=== PATIENT | male | born 1945 | race Caucasian/White ===

== ENCOUNTER 2016-11-14 05:45 | Day surgery (SDC) | payer MEDICARE ==
[~2016-11-14] VITALS: Ht 188 cm; Wt 97.8 kg
[~2016-11-14 05:45] MED LIST: AMLO10TA3 PO; ASCO100089 PO; ASPI325T32 PO; CARV12.52 PO; CLOP75TA3 PO; COLC0.6C3 PO; FURO-128 PO; GLIP5TAB21 PO; HYDR-3938 PO; INSU100I13 SUBQ; INSU200I SQ; LATA2.5D6 BOTH_EYES; LEVO137T2 PO; LEVO5DRO4 BOTH_EYES; LIP40 PO; LOSA100T29 PO; MULTIVITAMIN PO; NITR0.4T SL; PRE10 PO; ZYL100 PO
[2016-11-14] MEDS ORDERED: Propofol 10,000 mCg/mL 20 mL Inj ONE (05:46)
[2016-11-14] MEDS ORDERED: Lactated Ringer's 1,000 ML IV ONE (05:47)
[2016-11-14] MEDS ORDERED: Clindamycin Inj 600 MG in IV Premix 1 EACH IV ONE (06:00)
[2016-11-14 06:15] VITALS: BP 153/59; PULSE 55; RESP 16; O2SAT 93
[2016-11-14] MEDS ORDERED: Insulin LISPRO 300 Unit/3 mL Inj ONE (06:48)
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
[2016-11-14] MEDS ORDERED: Bupivacaine-MPF 0.5% W/EPI 30 mL Inj INFILTRATE ONE (07:50)
[2016-11-14] MEDS ORDERED: Lactated Ringer's 500 ML IV PRN (08:02)
[2016-11-14] MEDS ORDERED: Lactated Ringer's 1,000 ML IV SCH (08:02)
[2016-11-14] MEDS ORDERED: MetoCLOpramide 5 mg/mL 2 mL Inj IVPUSH PRN (08:05)
[2016-11-14] MEDS ORDERED: Ondansetron 2 mg/mL 2 mL Inj IVPUSH PRN (08:05)
[2016-11-14] MEDS ORDERED: Dexamethasone 4 mg/mL Inj IVPUSH PRN (08:05)
[2016-11-14] MEDS ORDERED: Phenylephrine 10,000 mCg/mL Inj IVPUSH PRN (08:05)
[2016-11-14] MEDS ORDERED: fentaNYL-PF 50 mCg/mL 2 mL Inj IVPUSH PRN (08:05)
[2016-11-14] MEDS ORDERED: HYDROmorphone 1 mg/mL Inj IVPUSH PRN (08:05)
[2016-11-14] MEDS ORDERED: EPHEDrine Sulfate 50 mg/mL Inj IVPUSH PRN (08:05)
[2016-11-14] MEDS ORDERED: HYDROcodone-APAP 5-325 mg Tablet PO PRN (08:30)
[2016-11-14 08:39] VITALS: BP 138/57; PULSE 52; RESP 18; O2SAT 95
--- NOTE | 2016-11-14 08:42 | PCM.PODPO ---
Podiatry Operative Report Date of Service: Nov 14, 2016 Date of Service Nov 14, 2016 Pre Operative Diagnosis Chronic ulceration left medial first metatarsal head extending to bone Chronic ulceration left plantar second metatarsal full-thickness to subcutaneous tissue Post Operative Diagnosis Same as preoperative diagnoses Procedure 1. Excision of ulceration 2 left foot with primary closure 2. Ostectomy left first metatarsal Surgeon Surgeon: Chau Garcia DPM Assistants: None Indication for Procedure Chronic ulceration with extension to the first metatarsal phalangeal joint of the left medial first metatarsal and chronic ulceration of the left plantar foot Findings Moderate amount of uric acid buildup within the first metatarsal phalangeal joint and overlying the medial eminence of the first metatarsal head. Severe osseous and articular degeneration of the first metatarsal phalangeal joints. No abscess formation or signs of infection noted Details of Procedure Patient was identified in the preoperative holding area. Operative record for diabetes allergies were identified and thoroughly discussed. The patient was transported into the operating room and placed on the operating room table in the normal supine position. The patient was then prepped and draped in the normal aseptic technique. The preoperative block consisting of 10 mL half percent Marcaine plain was given locally around the left first metatarsal phalangeal joint and left plantar second metatarsal ulceration. Attention was first paid to the left plantar foot. The full thickness ulceration with extension to fatty tissue was noted measuring 0.5 cm x 0.3 cm x 0.2 cm in depth. The wound bed was 80% fibrotic 20% red granulation tissue. An elliptical incision was made approximately 2 cm in length and 0.6 cm in width at its center excising the plantar ulceration. The ulceration was excised full- thickness to subcutaneous tissue. A fibrous plug was noted directly plantar to the second metatarsal head and was debrided with a rongeur. Direct palpation was performed and the local accessory bone was not palpated directly under the ulceration so no attempt was made to excise this accessory nodule. This wound was copiously flushed with large amounts of normal saline. Subcutaneous closure was performed with number 3. 0 Vicryl and skin closure was performed utilizing number 3. 0 Prolene. Minimal tension was noted on the skin incision. Attention was then paid to the medial aspect of the left first metatarsal head. Inspection of the ulceration revealed a small full-thickness ulceration with extension to the metatarsal phalangeal joint and to the first metatarsal head. This wound measured 0.4 cm x 0.3 cm x 0.4 cm in depth. An elliptical incision approximately 2 cm in length and 0.5 cm in width at its center was made encompassing the medial first metatarsal head ulceration. The central portion of the ellipse was excised through subcutaneous tissue. Once the ellipse and encompassing the ulcerative tissue had been excised the neurovascular structures of the medial foot were identified and retracted plantarly a Metzenbaum scissor was utilized to perform subcutaneous 1 and #into expose the first metatarsal head medially. Inspection of the first metatarsal head and the first metatarsophalangeal joint revealed a moderate amount of uric acid deposits and severe degeneration of the articular surface. A sagittal saw was then utilized to remove approximately a 2 mm portion of the medial eminence and a rongeur was used to remove any further bony prominence from the dorsal medial and plantar medial aspect of the first metatarsal medial eminence. This wound was then closely flushed with large amount of normal saline. Subcutaneous closure was performed utilizing number 3. 0 Vicryl and skin closure was performed utilizing number 3. 0 Prolene with minimal tension on the skin incision. An additional 10 mL of half percent Marcaine with epinephrine was injected intraoperatively. This wound was then dressed with Adaptic sterile Betadine soaked 4 x 4 gauze Kerlix and an Manuel bandage. The patient was awoken from anesthesia and transported to the operating room. No complications occurred during this procedure. Grafts, Implants: None Complications There were no periprocedural complications identified. Condition Stable Anesthetic Administered: MAC Catheters: None Output, Estimated Blood Loss: 10 Blood Admin during surgery: No Surgical Cast or Splint: None Surgical Specimen Removed: No Specimen sent to Pathology: No Post Operative Plan Elevate left foot Partial weight-bearing to left heel with limited activity Keep dressing clean dry and intact Discharged to home when stable Contact office with any questions or concerns regarding care Chau Garcia DPM Nov 14, 2016 08:42
[2016-11-14 09:05] VITALS: BP 162/65; PULSE 57; RESP 20; O2SAT 93
--- NOTE | 2016-11-14 09:13 | PCM.ANEP1 ---
Post Anesthesia Phase 1 PACU Phase 1 Assessment Date of Service: Nov 14, 2016 Vital Signs Vital Signs Date Time Temp Pulse Resp B/P Pulse Ox O2 Delivery O2 Flow Rate FiO2 11/14/16 09:05 57 20 162/65 93 Room Air 11/14/16 08:39 36.4 52 18 138/57 95 Room Air 11/14/16 06:29 CPAP/BIPAP 11/14/16 06:15 36.4 55 16 153/59 93 Room Air Anesthetic Administered: MAC Level of Alertness: Awake, talking Pain: No Nausea or Vomiting: No Oxygen Delivery: Room Air Lungs: Normal Air Movement Cristofer Teixeira MD Nov 14, 2016 09:13
--- NOTE | 2016-11-14 09:13 | PCM.ANEP2 ---
Post Anesthesia Evaluation ASA/CMS Post Anesthesia VS in Patient's Normal Range?: Yes Resp Stable; Airway Patent?: Yes CV Function & Hydration Stable: Yes Mental Status Recovered?: Yes Pain control Satisfactory?: Yes N/V Control Satisfactory?: Yes Cristofer Teixeira MD Nov 14, 2016 09:13
[2017-01-08] MEDS ORDERED: HYDR-4003 PO (12:58)
[2017-01-08] MEDS ORDERED: GLUC1VIA IJ (12:58)
[2017-01-08] MEDS ORDERED: CLIN-78 PO (12:58)
== END 2016-11-14 23:59 | disposition home or self-care (01) ==
LOC: SAS 05:45
PROVIDERS: ATTEND Podiatrist Foot & Ankle Surgery
DX: L97.524 Non-pressure chronic ulcer of other part of left foot with necrosis of bone (principal); M20.12 Hallux valgus (acquired), left foot; E11.9 Type 2 diabetes mellitus without complications; I10 Essential (primary) hypertension; Z79.4 Long term (current) use of insulin; Z79.899 Other long term (current) drug therapy; Z79.82 Long term (current) use of aspirin; Z87.891 Personal history of nicotine dependence
CPT/HCPCS: 13160; 28288; J1815; J7120

== ENCOUNTER 2017-01-09 11:52 | Day surgery (SDC) | payer MEDICARE ==
[~2017-01-09] VITALS: Ht 186.7 cm; Wt 95.7 kg
[2017-01-09] MEDS: Lactated Ringer's 1,000 ML IV SCH ×2 (06:04→12:18)
[~2017-01-09 11:52] MED LIST changes: +CLIN-78 PO; +Clindamycin Inj 600 MG in IV Premix 1 EACH IV ONE; +Dexamethasone 4 mg/mL Inj IVPUSH PRN; +EPHEDrine Sulfate 50 mg/mL Inj IVPUSH PRN; +GLUC1VIA IJ; +HYDR-4003 PO; +HYDROmorphone 1 mg/mL Inj IVPUSH PRN; +Labetalol 5 mg/mL 4 mL Inj IV PRN; +Lactated Ringer's 1,000 ML IV SCH; +Lactated Ringer's 500 ML IV PRN; +MetoCLOpramide 5 mg/mL 2 mL Inj IVPUSH PRN; +Ondansetron 2 mg/mL 2 mL Inj IVPUSH PRN; +Phenylephrine 10,000 mCg/mL Inj IVPUSH PRN; +fentaNYL-PF 50 mCg/mL 2 mL Inj IVPUSH PRN; +hydrALAZINE 20 mg/mL Inj IVPUSH PRN
[2017-01-09] MEDS ORDERED: MULT-1018 PO (12:48)
[2017-01-09] MEDS ORDERED: Clindamycin 600 mg/50 mL D5W Premix IV ONE (12:52)
[2017-01-09 13:01] VITALS: BP 158/67; PULSE 61; RESP 16; O2SAT 84
[2017-01-09 13:03] VITALS: O2SAT 98
[2017-01-09] MEDS ORDERED: LEVO150T5 PO (15:55)
[2017-01-09] MEDS ORDERED: ASPI-973 PO (15:58)
[2017-01-09] MEDS ORDERED: CLIN-77 PO (15:58)
[2017-01-09] MEDS ORDERED: CYCL10TA9 PO (15:59)
== END 2017-01-09 23:59 | disposition home or self-care (01) ==
LOC: SAS 11:52
PROVIDERS: ATTEND Podiatrist Foot & Ankle Surgery
DX: M86.9 Osteomyelitis, unspecified (principal); Z53.9 Procedure and treatment not carried out, unspecified reason

== ENCOUNTER 2017-01-09 13:18 | Inpatient (IN) | payer MEDICARE ==
[2017-01-09] VITALS (8 sets, daily range): BP systolic 166–191; BP diastolic 66–83; PULSE 64–78; RESP 16–32; O2SAT 84–98
[~2017-01-09] VITALS: Ht 185.4 cm; Wt 92.3 kg
[~2017-01-09 13:18] MED LIST changes: -Clindamycin Inj 600 MG in IV Premix 1 EACH IV ONE; -Dexamethasone 4 mg/mL Inj IVPUSH PRN; -EPHEDrine Sulfate 50 mg/mL Inj IVPUSH PRN; -HYDROmorphone 1 mg/mL Inj IVPUSH PRN; -Labetalol 5 mg/mL 4 mL Inj IV PRN; -Lactated Ringer's 1,000 ML IV SCH; -Lactated Ringer's 500 ML IV PRN; +MULT-1018 PO; -MetoCLOpramide 5 mg/mL 2 mL Inj IVPUSH PRN; -Ondansetron 2 mg/mL 2 mL Inj IVPUSH PRN; -Phenylephrine 10,000 mCg/mL Inj IVPUSH PRN; -fentaNYL-PF 50 mCg/mL 2 mL Inj IVPUSH PRN; -hydrALAZINE 20 mg/mL Inj IVPUSH PRN
--- NOTE | 2017-01-09 13:51 | DRSVH ---
PROCEDURE: X-RAY CHEST ONE VIEW, PORTABLE ([id number]) INDICATIONS: 71 year-old male with shortness of breath since last night. TECHNIQUE: One view of the chest was acquired. COMPARISON: [facility], CR, XR CHEST 2VW, 09/16/2016, 11:28. FINDINGS: Surgical changes and devices: Patient is status post coronary artery bypass grafting. Lungs and pleura: There is new small right subpulmonic pleural effusion. No pneumothorax. Bilateral i nterstitial pulmonary opacities are now present. Mediastinum: Mediastinal contours appear normal. Heart size is normal given AP technique. There is aortic atherosclerosis. Bones and chest wall: No suspicious bony lesions. Overlying soft tissues appear unremarkable. IMPRESSION: Moderate interstitial pulmonary edema, along with small right subpulmonic pleural effusion, suspiciou s for congestive heart failure. Dictated by: Christophe Dailey M.D. on 01/09/2017 at 13:48 Approved by: Christophe Dailey M.D. on 01/09/2017 at 13:50
--- NOTE | 2017-01-09 13:55 | ED.REPORT ---
HPI-Dyspnea / Wheezing Date of Service Jan 09, 2017 ED Provider: Yemi Cazares DO Patient is a 71 year old male with a history of osteomyelitis, triple bypass, peripheral vascular disease, chronic back pain, chronic renal insufficiency and diabetes who presents to the ED due to hypoxia. Associated symptoms include wheezing, shortness of breath since yesterday, dyspnea with exertion, left leg edema, chronic back pain flare up and feeling bloated. Patient states that he feels like his diaphragm is "not functioning right" and he hasn't been able to "catch his breath". He was scheduled for surgery today, where it was found that he was severely hypoxic and advised to go to the ED. Upon arrival to the ED the patient Sats were 84% on room air. Patient is currently on Plavix and diuretics. He reports that he hasn't felt an increased urgency even after taking the diuretics lately. Nursing Notes Stated Complaint: SOB Chief Complaint: Respiratory Distress Nursing Notes Reviewed: Yes Allergies: Coded Allergies: Penicillins (Verified Allergy, Severe, rash, 01/09/17) sulfamethoxazole (Verified Allergy, Unknown, 01/09/17) trimethoprim (Verified Allergy, Unknown, 01/09/17) lisinopril (Verified Adverse Reaction, Severe, COUGH, 01/09/17) Scheduled Allopurinol (Allopurinol) 100 Mg Tablet 300 MG PO QAM Amlodipine (Amlodipine) 10 Mg Tablet 10 MG PO QPM Ascorbic Acid (Vitamin C) 1,000 Mg Tab.chew 1,000 MG PO QAM Aspirin (Aspirin) 81 Mg Tablet 81 MG PO QAM Atorvastatin (Lipitor) 40 Mg Tablet 40 MG PO QPM Carvedilol (Carvedilol) 12.5 Mg Tablet 12.5 MG PO BID Clindamycin (Clindamycin) 150 Mg Capsule 300 MG PO QID Clopidogrel Bisulfate (Plavix) 75 Mg Tablet 75 MG PO QAM Furosemide (Lasix) 40 Mg Tablet 60 MG PO QAM Glipizide ER (Glipizide ER) 10 Mg Tab.er.24 10 MG PO BID Glucagon,Human Recombinant (Glucagen) 1 Mg/1 Ml Vial 1 MG IJ PRN Hydralazine (Hydralazine) 10 Mg Tablet 10 MG PO TID Insulin Glargine (Lantus U100 Solostar Insulin Pen) 100 Unit/1 Ml Insuln.pen 25 UNIT SUBQ QPM Insulin Lispro (Humalog Kwikpen) 200 Unit/Ml (3 Ml) Insuln.pen 10 UNIT SQ TIDAC 10U PLUS SLIDING SCALE DETERMINATION TIDAC Latanoprost (Latanoprost) 2.5 Ml Drops 1 GTT BOTH_EYES HS Levobunolol Ophth Soln (Levobunolol Ophth Soln) 5 Ml Drops 1 DROP BOTH_EYES QAM Levothyroxine (Levothyroxine) 150 Mcg Tablet 150 MCG PO QAM Losartan Potassium (Losartan Potassium) 100 Mg Tablet 50 MG PO QAM Multivitamin (Multi Vitamin Daily) 1 Each Tablet 1 EACH PO QAM Scheduled PRN Colchicine (Colchicine) 0.6 Mg Capsule 0.6 MG PO BID PRN PRN PRN Cyclobenzaprine (Cyclobenzaprine) 10 Mg Tablet 10 MG PO TID PRN PRN For Spasm Hydrocodone-Acetaminophen 5-325 mg (Hydrocodone-Acetaminophen 5-325 mg) 1 Each Tablet 1 TABLET PO Q6H PRN PRN For Pain Nitroglycerin SL (Nitrostat) 0.4 Mg Tab.subl 0.4 MG SL Q5MIN PRN PRN CHEST PAIN Prednisone (PredniSONE) 10 Mg Tablet 10 MG PO DAILY PRN PRN PRN General Time Seen by MD: 13:37 Chief Complaint Shortness of breath Hx Obtained From: Patient Arrived By: Walk-in Sudden in Onset?: Yes Onset Occurred: Yesterday Severity: Current: No pain currently Associated with: Reports: Leg swelling, Denies: Chest pain Recent Healthcare: No recent hospitalization, Recent doctor visit Past Medical History Past Medical History osteomyelitis peripheral vascular disease GOUT chronic back pain Reports: Diabetes mellitus, Hyperlipidemia, Hypertension Reports: Renal insufficiency Past Surgical History triple bypass stent placement Smoking History Former Smoker Social History Other Social History: Good social support, Ambulatory Status Independent Review of Systems Constitutional: Denies: Chills, Fever Respiratory: Reports: Shortness of breath, Denies: Non-productive cough Cardiovascular: Reports: Dyspnea on exertion, Parox nocturnal dyspnea, Denies: Chest pain Musculoskeletal: Reports: Extremity swelling Skin: Denies Diaphoresis Complete sys rev & neg: except as marked. GI: Denies: Abdominal pain Male: Denies Urinary frequency, Denies Urinary urgency Neurologic: Denies: Bladder dysfunction Physical Exam Initial Vital Signs Vital Signs (First) Date Time Temp Pulse Resp B/P Pulse Ox O2 Delivery O2 Flow Rate FiO2 01/09/17 13:30 36.7 66 32 191/73 84 Simple Mask 9 Initial VS: Reviewed General/Constitutional: Awake, Alert Neck: Atraumatic, Supple positive JVD hepatojugular relex Respiratory / Chest: Atraumatic Wheezing / Retractions: Positive: Wheezing expiratory (scattered in all agee , more pronounced at bases) scattered inspiratory rales in all agee, more pronounced at the bases tachypneic but no increased work of breathing CARDIO: systolic 3/6 murmur at the right upper sternal border Abdomen: Atraumatic, Soft, Non-tender Lower Extremity / Pelvis / MS: Atraumatic, Full range of motion 1+ pitting edema bilaterally, worse on the left bandage around the left leg Skin: Atraumatic, Color NL, No rash, Warm, Dry Neurologic: Oriented X3, Speech NL, No motor deficits, No sensory deficits Head / Eyes: Atraumatic, Normocephalic, PERRL, EOMI Psychiatric: Affect NL, Mood NL Interpretation & Diagnostics Lab Results Interpretation Result Diagram: 01/09/17 1345 01/09/17 1345 Test 01/09/17 13:45 White Blood Count 11.3th/mm3 (3.8-10.1) Red Blood Count 3.56mil/mm3 (4.40-5.80) Hemoglobin 10.0g/dL (13.8-17.2) Hematocrit 31.3% (41.0-50.0) Mean Corpuscular Volume 87.9fL (81-100) Mean Corpuscular Hemoglobin 28.1pg (27.0-35.0) Mean Corpuscular Hemoglobin Concent 31.9% (32.0-37.0) Red Cell Distribution Width 16.5% (12.3-15.4) Platelet Count 265bil/L (150-400) Neutrophils (%) (Auto) 78.3% (40-74) Lymphocytes (%) (Auto) 11.4% (14-46) Monocytes (%) (Auto) 7.6% (4-12) Eosinophils (%) (Auto) 2.1% (0-5) Basophils (%) (Auto) 0.4% (0-3) Prothrombin Time 11.6sec (8.1-12.5) Prothromb Time International Ratio 1.08ratio Sodium Level 131mEq/L (134-144) Potassium Level 5.1mEq/L (3.5-5.2) Chloride Level 95mEq/L (97-108) Carbon Dioxide Level 21mmol/L (18-29) Blood Urea Nitrogen 28mg/dL (8-27) Creatinine 1.61mg/dL (0.76-1.27) Estimat Glomerular Filtration Rate 45mL/min (>59) Glucose Level 184mg/dL (60-99) Calcium Level 9.8mg/dL (8.5-10.1) Magnesium Level 2.2mg/dL (1.6-2.6) Total Bilirubin 0.6mg/dL (0.0-1.2) Aspartate Amino Transf (AST/SGOT) 17U/L (0-50) Alanine Aminotransferase (ALT/SGPT) 12U/L (0-44) Alkaline Phosphatase 73U/L (25-160) Troponin T 0.039ug/L (0.0-0.011) Pro-B-Type Natriuretic Peptide 31113nw/mL (0-376) Total Protein 8.8g/dL (6.4-8.4) Albumin 3.4g/dL (3.4-5.0) ECG Interpretation ECG Interpretation: prolonged NC interval left atrial enlargement T wave inversion from V3 to V6, which is new from previous EKG on 06/12/15 Time: 14:08 Interpreted by: ED physician Normal ECG Interpretation: Normal rate (67), Normal sinus rhythm X-Ray Chest Interpretation Chest Xray Interpretation: IMPRESSION: Moderate interstitial pulmonary edema, along with small right subpulmonic pleural effusion, suspicious for congestive heart failure. Dictated by: Christophe Dailey M.D. on 01/09/2017 at 13:48 Approved by: Christophe Dailey M.D. on 01/09/2017 at 13:50 View: Portable, 1 view Interpretation / Wet Read by: Interpret - Radiologist Re-Eval/Medical Decision Med Decision/Clinical Course 71-year-old male with a history of insulin-dependent type II diabetes with a recent A1c of 7.9, coronary artery disease status post CABG, peripheral arterial disease on Plavix, and chronic osteomyelitis presents with increasing shortness of breath for the past month. He was actually scheduled for outpatient surgery with Dr. Garcia today for metatarsal removal due to his chronic osteomyelitis but surgery was canceled as he was hypoxic at 84 on room air. He was also to But had no increased work of breathing. Patient admits that he held his Lasix last night because he was instructed prior to his surgery. He takes 60 mg daily but does not have significant urination after taking this medication. He admits to orthopnea and paroxysmal nocturnal dyspnea. He has noticed a small amount of increased swelling in his legs. X- ray shows increased pulmonary vascular congestion and clinically the patient appears fluid overloaded with JVD, lower extremity edema and wet sounding lungs. He was treated with IV Lasix 40 mg 1 here. His EKG returned showing T- wave inversions in V3 through V6 which is new when compared from previous EKG from 2014. Patient does not have chest pain. I ordered an echocardiogram today to reevaluate his mitral regurgitation and cardiac ejection fraction. Recent cardiac stress test done 11/05/16 shows abnormal myocardial perfusion images. There is a moderate sized, moderately severe, fixed defect in the lateral wall, consistent with myocardial infarct. There is mild. Infarct ischemia in the anterior lateral wall. Mild left ventricular enlargement and slight decreased left ventricular systolic function. The patient explains chest pain during Lexiscan infusion. There is [address] depression in V6. He also had an echocardiogram done March 2016 that showed an ejection fraction of 60% with moderate mitral valve regurgitation. Troponin returned elevated at 0.039 and I spoke with Dr. Scruggs regarding this patient with concerns for NSTEMI versus CHF exacerbation in the setting of renal insufficiency. She recommended treating patient with heparin until more is known and the echocardiogram results return. I considered d-dimer but patient was not tachycardic and given that he already has renal insufficiency and is in need of significant diuresis, has the potential to need a cardiac cath in the next several days, he is on heparin already and that an alternative diagnosis is more plausible I elected to not perform a CT PE. D-dimer would certainly be positive with his chronic osteomyelitis. The current diagnosis and plan was discussed with the patient and his family and all questions answered He will be admitted for diuresis and further heart evaluation Source of Hx: Old records Re-Evaluation/Progress : Time of Eval: 15:16 Re-Evaluation/Progress Note: Discussed results and plan for admit. The patient understands and agrees to the plan for admit. All questions were addressed. Consultation #1: Referral / Consult Name: Odette Nazario MD Consulted With: Cardiology Call Returned at: 15:03 Marine Diesel Technician: Will see patient, Agrees with eval, Agrees with plan Note: Consult with Dr. Nazario, who recommends the patient be admitted and she will see them tomorrow. Consultation #2: Referral / Consult Name: James Hardy MD Call Returned at: 15:53 Marine Diesel Technician: Will see patient, Agrees with plan, Accepts admit Counseled Regarding: Diagnosis, Lab results, Need for admission Discharge & Departure Impression: Primary Impression: Acute CHF Congestive heart failure type: unspecified congestive heart failure type Qualified Code: I50.9 - Heart failure, unspecified Additional Impressions: Non-STEMI (non-ST elevated myocardial infarction) Elevated troponin Renal insufficiency Anemia Anemia type: unspecified type Qualified Code: D64.9 - Anemia, unspecified Hyperglycemia Hyponatremia Leukocytosis Leukocytosis type: unspecified Qualified Code: D72.829 - Elevated white blood cell count, unspecified Disposition: ADMITTED TO HOSPITAL Discharge Condition All VS Reviewed: Yes Condition: Stable Referrals: Mychal Forrest MD (PCP) Scribe Attestation Portions of this note were transcribed by Shirley Hill. I, Dr. Cazares personally performed the history, physical exam and medical decision-making; I reviewed and confirmed the accuracy of the information in the transcribed note. Signed by: Shirley Vogt, 01/09/17 and [id number] copies to: Mychal Forrest MD, Gary R DO Jan 09, 2017 13:55 Lona Hill Jan 09, 2017 14:07
[2017-01-09] MEDS ORDERED: Furosemide 10 mg/mL 4 mL Inj ONE (14:00)
[2017-01-09 14:07] LABS: BASOPHILS % (AUTO) 0.4 % (0-3); EOSINOPHILS % (AUTO) 2.1 % (0-5); MONOCYTES % (AUTO) 7.6 % (4-12); Mean Corpuscular Hemoglobin 28.1 pg (27.0-35.0); Mean Corpuscular Volume 87.9 fL (81-100); NEUTROPHILS % (AUTO) 78.3 % (40-74); Platelet Count 265 bil/L (150-400)
[2017-01-09] MEDS: Furosemide 10 mg/mL 4 mL Inj IVPUSH SCH (14:08)
[2017-01-09 14:19] LABS: INR 1.08 ratio
[2017-01-09 14:38] LABS: Magnesium 2.2 mg/dL (1.6-2.6)
[2017-01-09 14:41] LABS: TROPONIN T 0.039 ug/L (0.0-0.011)
[2017-01-09] MEDS ORDERED: Heparin 25K Unit/500mL 0.45 NS 25,000 UNIT in IV Premix 1 EACH IV SCH (15:20)
[2017-01-09] MEDS ORDERED: Ondansetron 2 mg/mL 2 mL Inj IVPUSH PRN ×2 (15:55→17:10)
[2017-01-09] MEDS ORDERED: LEVO150T5 PO (15:55)
[2017-01-09] MEDS ORDERED: Alum-Mag Hydrox-Simeth 30 mL Suspension PO PRN ×2 (15:55→17:10)
[2017-01-09] MEDS ORDERED: CLIN-77 PO (15:58)
[2017-01-09] MEDS ORDERED: ASPI-973 PO (15:58)
[2017-01-09] MEDS ORDERED: CYCL10TA9 PO (15:59)
--- NOTE | 2017-01-09 16:39 | DRSVH ---
[facility] [address] [place] [address] Echocardiogram Report Name: ELISHA MACK JStudy Date: 01/09/2017 Height: 73 in Hospital Exam Location: [facility] Weight: 211 lb Gender: Male BSA: 2.2 m2 : 1945 Age: 71 yrs BP: 187/77 mmHg Reason For Study: Fluid overload, SOB History: CABG Ordering Physician: Performed By: Maia Looney Interpretation Summary 1. Normal left ventricular size with mildly increased wall thickness and reduced systolic function with an estimated EF of 35 to 40% 2. Normal right ventricular size and systolic function. 3. Findings most consistent with moderate aortic stenosis. Compared to the previous echo study, the estimated EF has decreased. The wall motion abnormalities may be new Procedure: A two-dimensional transthoracic echocardiogram with color flow and Doppler was performed. The study quality was technically adequate. Comparison is made with the echocardiogram of 03/26/2016. The patient was in normal sinus rhythm during the exam. Left Ventricle: The left ventricle is normal in size. Left ventricular wall thickness is mildly increased. The LVOT diameter is 2.3 cm. The LVOT velocity is 0.95 m/s. The ejection fraction is estimated to be 35-40%. Septal motion is consistent with post-operative state. Hypokinesis of the basal inferior/inferolateral wall and possible hypokinesis of the distal anterolateral segment. Assessment of diastolic parameters suggests a pseudonormalization pattern, consistent with elevated filling pressures. Right Ventricle: The right ventricle is normal in size and function. Atria: The left atrium is severely dilated. Right atrial size is normal. There is no Doppler evidence for an interatrial shunt. Mitral Valve: The mitral valve leaflets appear mildly thickened, but open well. The mitral valve leaflets are mildly calcified. There is mild mitral regurgitation. Aortic Valve: The right and left coronary cusps are mildly calcified with limited excursion. The noncoronary cusp appears normal. The calculated aortic valve area is 1.3 cm2. The peak aortic velocity is 2.8 m/sec. The aortic valve mean gradient is 17 mmHg. The peak aortic velocity on the previous exam was 3.2 m/sec. No aortic regurgitation is present. Tricuspid Valve: The tricuspid valve leaflets are thin and pliable. There is a trace or physiologic amount of tricuspid regurgitation. The right ventricular systolic pressure is estimated at 42 mmHg assuming a right atrial pressure of 3 mm Hg. Pulmonic Valve: The pulmonic valve is not well seen, but is grossly normal. There is a trace or physiologic amount of pulmonic regurgitation. Great Vessels: The aortic root is normal size. The ascending aorta could not be visualized. The aortic arch could not be visualized. The pulmonary artery is normal size. The IVC is of normal diameter and collapses greater than 50% with a sniff. This suggests a low right atrial pressure of 3 mm Hg. Pericardium/ Pleura There is no pericardial effusion. MMode/2D Measurements & Calculations LVIDd: 5.5 cm RA long axis: 5.8 cm LVOT diam LVIDs: 4.5 cm LA A2 area: 31.2 cm FS: 16.9 % LA A4 area: 26.1 cm RA area: 19.0 cm AoV Opening EPSS: 1.1 cm LA length (vol): 6.1 cm RA vol: 52.9 ml IVSd: 1.2 cm LA vol: 113.1 ml RA : 24.0 ml/m2 Ao root diam LVPWd: 1.1 cm LA vol index: 51.4 ml/m Aortic Jxn IVC diam: 2.1 cm : 2.8 cm EDV(MOD-sp2) LV mott. diameter/BSA LV sys. diameter/BSA RVD1 (basal) (cm/m^2): 2.5 (cm/m^2): 2.1 : 4.2 cm ESV(MOD-sp2) EF(MOD-sp2) RVD2 (mid) TAPSE: 2.1 cm : 2.8 cm Doppler Measurements & Calculations Ao V2 max MV E max christopher MV E/A: 1.1 TR max christopher : 282.2 cm/sec : 113.7 cm/sec Med Peak E' Christopher : 313.6 cm/sec Ao max PG MV A max christopher TR max PG : 31.9 mmHg : 102.6 cm/sec E/E' med: 22.3 : 39.3 mmHg Ao mean PG MV P1/2t: 52.7 msec Lat Peak E' Christopher PA V2 max : 17.0 mmHg : 109.4 cm/sec LVOT Max Christopher E/E' lat: 23.8 PA mean PG : 94.7 cm/sec E/e' average PA Accel Time JESUSITA(I,D): 1.3 cm : 0.15 sec sev ratio MV dec time MV P1/2t max christopher Ao V2 mean LV V1 max PG : 0.18 sec : 193.3 cm/sec MVA(P1/2t): 4.2 cm2 Ao V2 VTI: 69.9 cmLV V1 VTI JESUSITA(V,D): 1.4 cm2 : 22.9 cm PA V2 mean JESUSITA indexed to BSA : 73.3 cm/sec (cm^2/m^2): 0.60 Reading Physician:04:38 PM
[2017-01-09] MEDS ORDERED: Polyethylene Glycol (PEG) 17 Gm Powder PO PRN (17:10)
--- NOTE | 2017-01-09 17:19 | PCM.HPMED ---
Subjective Date of Service Jan 09, 2017 Primary Provider: Admitting Physician: James Hardy MD Primary Care Physician: Mychal Forrest MD Attending Physician: James Hardy MD Chief Complaint: Shortness of breath , hypoxia History of Present Illness: This is a 71 year old male with a nextensive histopry od coronary artery disease s/p CABG and stenting , history of osteomyelitis due to diabetic foot ulcers, peripheral vascular disease, chronic back pain, CKD stage IIIB with a baseline creatinine of 1.7-2.0 , Hypertension, hypercholesterolemia and IDDM type who presents to the ED due to shortness of breath and was found to have hypoxia. His symptoms include wheezing, shortness of breath since yesterday, dyspnea with exertion, left leg edema, chronic back pain flare up and feeling bloated. Patient states that he feels like his diaphragm is "not functioning right" and he hasn't been able to "catch up his breath". He was scheduled for surgery today for foot osteomyelitis , where it was found that he was severely hypoxic and advised to go to the ED for evaluation . Here in the ER oxygen saturation was 84% on room air and chest X-ray shows edema. His o2sat improved with oxygen and Lasix and EKG shows ST depression in lateral leads . Initial troponin is borderline positive . house calls nurse art librarian was consulted , who recommended heparinization and admission His home medication include : BB, Statin Plavix, Aspirin adn ARB . He also take 40 mg of furosemide daily . He reports urinating quite less lately despite taking his diuretic he said . He denies fever, chills, abdominal pain, nausea, vomiting . Review of Systems: Pertinent for shortness of breath otherwise a comprehensive review x 12 points is negative Allergies Coded Allergies: Penicillins (Verified Allergy, Severe, rash, 01/09/17) sulfamethoxazole (Verified Allergy, Unknown, 01/09/17) trimethoprim (Verified Allergy, Unknown, 01/09/17) lisinopril (Verified Adverse Reaction, Severe, COUGH, 01/09/17) Home Medications Scheduled Allopurinol (Allopurinol) 100 Mg Tablet 300 MG PO QAM Amlodipine (Amlodipine) 10 Mg Tablet 10 MG PO QPM Ascorbic Acid (Vitamin C) 1,000 Mg Tab.chew 1,000 MG PO QAM Aspirin (Aspirin) 81 Mg Tablet 81 MG PO QAM Atorvastatin (Lipitor) 40 Mg Tablet 40 MG PO QPM Carvedilol (Carvedilol) 12.5 Mg Tablet 12.5 MG PO BID Clindamycin (Clindamycin) 150 Mg Capsule 300 MG PO QID Clopidogrel Bisulfate (Plavix) 75 Mg Tablet 75 MG PO QAM Furosemide (Lasix) 40 Mg Tablet 60 MG PO QAM Glipizide ER (Glipizide ER) 10 Mg Tab.er.24 10 MG PO BID Glucagon,Human Recombinant (Glucagen) 1 Mg/1 Ml Vial 1 MG IJ PRN Hydralazine (Hydralazine) 10 Mg Tablet 10 MG PO TID Insulin Glargine (Lantus U100 Solostar Insulin Pen) 100 Unit/1 Ml Insuln.pen 25 UNIT SUBQ QPM Insulin Lispro (Humalog Kwikpen) 200 Unit/Ml (3 Ml) Insuln.pen 10 UNIT SQ TIDAC 10U PLUS SLIDING SCALE DETERMINATION TIDAC Latanoprost (Latanoprost) 2.5 Ml Drops 1 GTT BOTH_EYES HS Levobunolol Ophth Soln (Levobunolol Ophth Soln) 5 Ml Drops 1 DROP BOTH_EYES QAM Levothyroxine (Levothyroxine) 150 Mcg Tablet 150 MCG PO QAM Losartan Potassium (Losartan Potassium) 100 Mg Tablet 50 MG PO QAM Multivitamin (Multi Vitamin Daily) 1 Each Tablet 1 EACH PO QAM Scheduled PRN Colchicine (Colchicine) 0.6 Mg Capsule 0.6 MG PO BID PRN PRN PRN Cyclobenzaprine (Cyclobenzaprine) 10 Mg Tablet 10 MG PO TID PRN PRN For Spasm Hydrocodone-Acetaminophen 5-325 mg (Hydrocodone-Acetaminophen 5-325 mg) 1 Each Tablet 1 TABLET PO Q6H PRN PRN For Pain Nitroglycerin SL (Nitrostat) 0.4 Mg Tab.subl 0.4 MG SL Q5MIN PRN PRN CHEST PAIN Prednisone (PredniSONE) 10 Mg Tablet 10 MG PO DAILY PRN PRN PRN PMH IDDM type II Hypertension Osteomyelitis Peripheral vascular disease GOUT CKD stage II - IV Hyperlipidemia Surgical History triple bypass stent placement Family History Pertinent fo CAD Social History Hx Alcohol Use: No Hx Substance Use: No Smoking Status: Former Smoker Living Arrangement: with Family Exam Vital Signs Vital Sign - Last Date Time Temp Pulse Resp B/P Pulse Ox O2 Delivery O2 Flow Rate FiO2 01/09/17 15:31 64 22 172/67 98 Nasal Cannula 4 01/09/17 13:30 36.7 Exam General /: Overweight male , NAD HEENT : Esme, Sclerae is anicteric .Atraumatic, Normocephalic, PERRL, EOMI Neck: Supple , positive JVD, trachea is midline Chest: Atraumatic. No deformity. respiratory effort is mildly labored Lung : Tachypneic .Wheezing expiratory (scattered in all agee, more pronounced at bases) Heart : S1 S2, irregular rate and rhythm , systolic 3/6 murmur at the right upper sternal border Abdomen: Soft, Non-tender, no palpable mass LE : 1+ edema Neurologic: Oriented X3, Speech NL, No motor deficits, No sensory deficits Psychiatric: Mood is stable. Lab and Diagnostics Result Diagram: 01/09/17 1345 01/09/17 1345 X-Rays, CTs and MRIs Chest X-ray reviewed : Moderate interstitial pulmonary edema, along with small right subpulmonic pleural effusion, suspicious for congestive heart failure 12-lead ECG St depression in lateral leads Assessment & Plan 1. Acute Systolic Heart Failure Started on diuretic , oxygen. Strict I/O . Fluid restriction to 1.5 liters daily. Echocardiogram . Patient was discussed with cushion builder School Leader by ER physician and willl see pt in consultation 2. NSTEMI Troponin 0.03. Will follow trend. Patient has know CAD s/p CABG . Recent stress test back in [facility] shows fixed defect but overall abnormal perfusion . On Aspirin, plavix, BB amd ARB Heparin protocol/ Nitroglycerine for chest pain,and morphine sulfate for chest pain not relived by nitroglycerine . Obtain lipid profile , hemiglobin A1c, TSH Possible cardiac catheterization per cardiology discretion. 3. IDDM Type II with foot ulcer and osteomyelitis 4. CKD stage III. Likely diabetic nephropathy or and hypertensive nephropathy Baseline creatinine is 1.8 -2 Monitor renal function . Avoid nephrotoxic agent Thigh diabetic control and diabetic diet Start Sliding scale insulin and resume home regimen. Obtain A1c Home medications reviewed and reconciled for his multiple medical problems ( See order ) including Hypertension This is an initial plan of care for now and will be adjusted per clinical course and per cardiology VTE Prophylaxis: Other (On heparin drip for NSTEMI ) Resuscitation Status: CPR: Attempt Resuscitation Time spent 75 minutes James Hardy MD Jan 09, 2017 17:19
[2017-01-09] MEDS: Heparin 5,000 Unit/mL Inj IVPUSH PRN ×2 (17:47→22:13)
[2017-01-09] MEDS: HYDROcodone-APAP 5-325 mg Tablet PO PRN (18:46)
[2017-01-09] MEDS: Insulin Human REGular 300 Unit/3 mL Inj SUBQ SCH (20:47)
[2017-01-09] MEDS ORDERED: LEVOBUNOLOL 0.5% BOTH_EYES SCH (21:00)
[2017-01-09] MEDS: Insulin GLARgine 100 Unit/mL Syringe SUBQ SCH (22:12)
[2017-01-10] VITALS (9 sets, daily range): BP systolic 132–183; BP diastolic 67–83; PULSE 60–76; RESP 16–22; O2SAT 92–99
[2017-01-10] MEDS: Heparin 5,000 Unit/mL Inj IVPUSH PRN ×2 (01:11→10:56)
[2017-01-10] MEDS: Insulin Human REGular 300 Unit/3 mL Inj SUBQ SCH ×4 (02:30→20:16)
[2017-01-10 03:30] LABS: BASOPHILS % (AUTO) 0.3 % (0-3); EOSINOPHILS % (AUTO) 2.9 % (0-5); MONOCYTES % (AUTO) 10.3 % (4-12); Mean Corpuscular Hemoglobin 27.8 pg (27.0-35.0); NEUTROPHILS % (AUTO) 68.8 % (40-74); Platelet Count 222 bil/L (150-400)
[2017-01-10 04:29] LABS: TROPONIN T 0.043 ug/L (0.0-0.011)
[2017-01-10] MEDS ORDERED: Furosemide 10 mg/mL 4 mL Inj IVPUSH ONE (04:35)
--- NOTE | 2017-01-10 04:58 | NUR ---
Shortness of Breath Patient put operations and intelligence assistant light to report increasing shortness of breath. Oxygen flow rate increased to 5L to maintain SpO2. Breath sounds: markedly decreased at the bases. Patient states that he is really not feeling as well as he was earlier, and he thinks his urine output has dropped overnight. Page to hospitalist. IV lasix 40mg given per orders. Continue to monitor.
--- NOTE | 2017-01-10 10:15 | PCM.PNMED ---
Subjective Date of Service Jan 10, 2017 Subjective Follow up for hypoxemia. STEMI, uncontrolled diabetes, osteomyelitis , Systolic heart failure Patient seen and examined . Somewhat better today . No chest pain. SOB improved. Exam Vital Signs Vital Sign - Last Date Time Temp Pulse Resp B/P Pulse Ox O2 Delivery O2 Flow Rate FiO2 01/10/17 08:06 36.5 76 22 179/74 92 Nasal Cannula 6.00 Intake and Output 01/09/17 01/09/17 01/10/17 Cumulative From/Thru 15:00 23:00 07:00 01/09/17 13:30 - 01/10/17 06:26 Intake Total 0 ml 389 ml 389 ml Output Total 1000 ml 1000 ml 2000 ml Balance -1000 ml -611 ml -1611 ml Intake Oral 0 ml 175 ml 175 ml IV Total 214 ml 214 ml Output Urine Total 1000 ml 1000 ml 2000 ml # Voids 1 1 Exam General /: NAD , in bed comfortably. HEENT : clerae is anicteric .Atraumatic, Normocephalic, PERRL, EOMI Neck: Supple ,No JVD, trachea is midline Chest:. No deformity. normal respiratory effort Lung : .Scattered crackles. No wheezing Heart : S1 S2, irregular rate and rhythm , systolic 3/6 murmur at the right upper sternal border Abdomen: Soft, Non-tender, no palpable mass LE : No edema, no cyanosis, no calf tenderness Neurologic: Oriented X3, Speech NL, No motor deficits, No sensory deficits Psychiatric: Mood is stable. IVs and Medications Medications Reviewed: Medications were reviewed in detail Lab and Diagnostics Result Diagram: 01/10/17 0305 01/10/17 0305 X-Rays, CTs and MRIs Chest X-ray reviewed : Moderate interstitial pulmonary edema, along with small right subpulmonic pleural effusion, suspicious for congestive heart failure Today chest X-ray personality reviewed : Improvement in Pulmonary edema 12-lead ECG St depression in lateral leads Assessment & Plan 1. Acute Systolic Heart Failure Started on diuretic , oxygen. Strict I/O . Fluid restriction to 1.5 liters daily. Echocardiogram . Patient was discussed with hand ironer Dishroom Attendant by ER physician and willl see pt in consultation 2. NSTEMI Troponin slightly up today to 0.04. Patient has known h/o of CAD s/p CABG . Recent stress test back in [facility] shows fixed defect but overall abnormal perfusion . On Aspirin, plavix, BB amd ARB Continue heparin infusion Nitroglycerine for chest pain,and morphine sulfate for chest pain not relived by nitroglycerine . Obtain lipid profile pending. Cardiology consult and recommendation is pending 3 . Pulmonary edema : Due to # 1 and 2 . Continue diuretic. Chest X-ray this morning shows improvement 4. 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 CKD stage III. Likely diabetic nephropathy or and hypertensive nephropathy Baseline creatinine is 1.8 -2 . Creatinine 1.6 today Monitor renal function . Avoid nephrotoxic agent 6. Right foot Osteomyelitis and Diabetic Foot Ulcer Continue PO clyndamycin . Podiatry to see patient in consultation. Foot surgery to be re-scheduled Clinically and hemodinamilcally stable. Repeat chest X-ray shows improvement in Pulmonary edema Thigh diabetic control and diabetic diet Start Sliding scale insulin and resume home regimen. A1c 7.9. Optimum goal less than 7 given h/o CAD and nephropathy. Home medications for chronic medical problems . Cardiology consult pending ; VTE Prophylaxis: Other (On heparin drip for NSTEMI ) Resuscitation Status: CPR: Attempt Resuscitation Time spent 35 minutes James Hardy MD Jan 10, 2017 10:15
--- NOTE | 2017-01-10 10:26 | DRSVH ---
PROCEDURE: X-RAY CHEST, TWO VIEWS ([id number]) INDICATIONS: SOB TECHNIQUE: 2 views of the chest were acquired. COMPARISON: [facility], CR, XR CHEST 1VW (PORTABLE), 01/09/2017, 13:27. FINDINGS: Surgical changes and devices: Status post CABG procedure. Lungs and pleura: Small bilateral pleural fluid collections noted. Interstitial prominence compatib le with pulmonary edema has diminished compatible with resolving CHF. Mediastinum: Mediastinal contours are normal. Heart size is normal. Bones and chest wall: No suspicious bony abnormalities. Soft tissues appear unremarkable. IMPRESSION: 1. Diminished pulmonary edema compatible with resolving CHF. 2. Small bilateral pleural effusions stable. Dictated by: Jenna Carroll MD, PhD on 01/10/2017 at 10:22 Approved by: Jenna Carroll MD, PhD on 01/10/2017 at 10:24
--- NOTE | 2017-01-10 11:40 | NUR ---
Social Work: Initial Assessment D: Per EMR review, pt is a 71 year old male admitted for acute heart failure, N STEMI. Pt is Medicare with AARP supplement; pt has no LTC insurance or VA Benefits. PCP is Mychal Forrest MD. NOK is Danette Lebron, , . Advanced directives completed- requested copy for chart. No RA score entered. DIAL MOUNTER met with pt and at bedside. Sw role explained and contact info provided. See initial assessment. Pt lives in [place] with his spouse. Pt lives in a single story home with no steps in a prison community. Pt has never had HH or Skilled rehab. Pt continues to drive and is I with ADLs. Pt occasionally uses a cane and has a knee scooter available for use if needed. Pt and anticipate pt will discharge home via POV once medically stable. They identify no social work needs at this time. Pt discussed in morning rounds. Pt scheduled for cardiac cath procedure later today. Discharge pending input from cardiology. A: Pt who is I at baseline. P: Anticipate pt to discharge home via POV; No social work needs identified. DIAL MOUNTER to continue to follow. SEJAL Colón Addendum: 01/10/17 at 1145 by MELANIA BECK Amended: Links added.
--- NOTE | 2017-01-10 16:37 | PCM.PHAPRO ---
Progress Shortness of breath , hypoxia Richard Rivero Pharm.D Jan 10, 2017 16:37 PARENTERAL NUTRITION ORDERS 5 10-Jan-17 Standard Hang Time: 2100 Substrates Total kcal: 1820 AMINO ACIDS 75 g DEXTROSE 300 g Total Volume (mL): 1250 LIPIDS 50 g Sterile Water for Injection QS mL To Infuse Over (hrs): 24 Total Volume 1250 mL At at a rate of (mL/hr): 52 Additives Sodium Chloride 90 mEq "typical" daily requirements Sodium Acetate 30 mEq Sodium 50-120mEq Potassium Chloride 40 mEq Potassium 60-120mEq Potassium Phosphate 20 mEq Phosphate 20-40mEq Calcium Gluconate 9 mEq Magnesium 8-32mEq Magnesium Sulfate 16 mEq Calcium 9-22mEq Acetate* 80-120mEq Chloride* 80-120mEq Regular Insulin units *Depending on acid-base status Famotidine 40 mg Multivitamins 1 std dose Insulin Regimen Trace Elements 1 std dose none Thiamine 100 mg Regular Low Intensity Subcut X Folic Acid 1 mg Regular Medium Intensity Subcut Ascorbic Acid mg Regular High Intensity Subcut Regular Insulin Infusion Other: Special Instructions: To be infused via central line only. For delay or inturruption of TPN contact the pharmacist for alternative replacement solution. Signature Date: AKIKO BENTLEY [address] [facility] Richard Rivero Pharm.D Jan 10, 2017 16:37
[2017-01-10] MEDS: HYDROcodone-APAP 5-325 mg Tablet PO PRN (17:22)
--- NOTE | 2017-01-10 18:25 | NUR ---
Hypertension/Activity/ L Foot Wound: pt hypertensive throughout shift despite administering scheduled medications. Dr Nazario notified. Patient remains on tele. Will continue to monitor VSS. Pt tolerating ambulating in room and to bathroom Ind. without report of CP, SOB or dizziness. Strong/steady gait. patient encouraged to sit up in chair for meals and ambulate in halls as tolerated. SpO2: mid 90's on 3L NC. L foot wound was redressed by Dr Garcia and doctor stated he would return tomorrow morning to dress the wound again. Dressing C/D/I patient denies any pain to foot. Possible surgery to L foot ulcer Thursday per Dr Garcia.
--- NOTE | 2017-01-10 19:04 | CONS ---
[address] [address] CONSULTATION REPORT PATIENT: ELISHA MACK : 1945 MR#: [id number] ADMIT: 01/09/2017 JOB ID: [id number] DATE OF SERVICE: 01/10/2017 CHIEF COMPLAINT: I was asked by the hospitalist team to consult on this patient given admission with CHF. HISTORY OF PRESENT ILLNESS: The patient is a 71-year-old man with past medical history significant for diabetes mellitus, coronary disease with history of bypass surgery in 1999, as well as history of a stent placement to his left leg artery. He says his anginal equivalent prior to bypass surgery was upper back pain that worsened with exertion. He does have some chronic back pain, but this is not shown any worsening with exertion. He has been fairly inactive over the past several months because he has a foot infection, for which he was scheduled to have a bone removed by Podiatry on the day of admission. He has noticed some mild shortness of breath by walking but it has always resolved. He has not had any problems with orthopnea, PND, lower extremity edema, palpitations, presyncope, syncope. Prior to the day he came into the ED, he noticed that he was having more shortness of breath than usual, but he was still able to go to sleep. However, the next day, he felt increasingly short of breath, and although he was trying to get his Podiatry procedure done, he was sent to the ER instead. His initial chest x-ray showed evidence for moderate interstitial pulmonary edema as well as a right pleural effusion. He was admitted and treated with IV diuresis and he has had significant improvement with IV diuresis. His chest x-ray today shows diminished pulmonary edema, small bilateral pleural effusions which appears stable. He had an echocardiogram that showed an EF estimated in the range of 35% to 40%. Showed a decrease in EF from prior EKG in 2016. He had normal right ventricular size and systolic function and findings most consistent with moderate aortic stenosis. There appeared to be some wall motion abnormalities likely affecting the basal, inferior and inferolateral wall and possible hypokinesis of the distal anterolateral segment. He had a stress test performed at the end of October. This was read as showing abnormal images with a moderate-size severe fixed defect in the lateral wall, with only mild shahid-infarct ischemia seen along the anterolateral wall. He had mild left ventricular enlargement and slightly decreased left ventricular systolic function. EF was estimated at 44% on this nuclear study. The patient had one lead with slight ST depression which is nondiagnostic. He was told about the results by his primary mysql database administrator, Dr. Casas. As noted, since diuresis, he is feeling much better. He denies back pain, back pressure, chest pain, chest pressure. PAST MEDICAL HISTORY/PROBLEM LIST: 1. History of diabetes. 2. Hypertension. 3. Osteomyelitis affecting his left foot. 4. Peripheral vascular disease. 5. Chronic kidney disease. 6. Hyperlipidemia. 7. Coronary disease with history of bypass surgery in 1999. MEDICATIONS: At time of admission included: 1. Allopurinol 300 mg daily. 2. Amlodipine 10 mg q.p.m. 3. Vitamin C. 4. Aspirin 81 mg a day. 5. 40 mg q.p.m. 6. Carvedilol 12.5 b.i.d. 7. Clindamycin 150 q.i.d. 8. Plavix 75 a day. 9. Lasix 40 mg tablets to be taken as 60 mg in the morning. 10. Glipizide ER. 11. Glucagon. 12. Hydralazine 10 mg t.i.d. 13. Insulin glargine. 14. Insulin Lispro. 15. Losartan. 16. Levothyroxine. ALLERGIES: Include: 1. PENICILLIN. 2. SULFA/TRIMETHOPRIM. 3. LISINOPRIL. SOCIAL HISTORY: Former smoker. No significant alcohol use. FAMILY HISTORY: No early coronary disease. REVIEW OF SYSTEMS: Overall health: No fevers, chills, night sweats, or weight loss. GI: No problems with ulcer, blood in stool. : No dysuria, no hematuria. Pulmonary: Increased shortness of breath with findings of interstitial edema. Cardiac: As per HPI. Musculoskeletal: He has had wound affecting his left foot which is making him quite inactive over the past several months. He is scheduled to have a procedure to remove that piece of bone. Endocrine: No heat or cold intolerance. Heme: No easy bruising or bleeding. Neuro: No chronic headaches. ENT: No difficultly swallowing. No hearing difficulties. Ophtho: No vision issues. Psych: No acute issues. PHYSICAL EXAMINATION: His blood pressure is 164/75. He is afebrile. Heart rate 63, sats are 92% on 3 L. General: In no acute distress. Speaking in full sentences without apparent shortness of breath. Head and neck exam: Normocephalic, atraumatic. Neck: No carotid bruits appreciated. Heart exam: Regular rate and rhythm with a systolic murmur appreciated, left sternal border. Lungs: I do not hear any crackles or wheezes. Back: No CVA tenderness to palpation. Abdomen soft, nontender. Extremities: Warm. The left foot is wrapped with no edema. Psych: Appropriate mood and affect. Neuro: Alert and oriented x3. Gait is not tested. Oropharynx: Mucous membranes moist. Ophtho: Vision grossly intact. LABORATORIES: Show white count 8.7, H and H 8.6 and 27.2. Chemistry: Shows a sodium 134, potassium 4.2, chloride and bicarb 97 and 20, respectively. BUN and creatinine 30 and 1.67. Still fairly stable troponins, barely above indeterminate range. ProBNP is of course elevated. IMPRESSION: Since October of this year, we have known that the patient's heart function is somewhat decreased. We also know that there are probably areas of infarct without significant ischemia affecting his heart. His heart function is at least mildly reduced on his echocardiogram as well. He came in with volume overload with clear pulmonary edema, which has responded nicely to Lasix. He has very borderline elevated cardiac markers. He has been getting antibiotics. He has been fairly inactive. He has not had any arrhythmias to my knowledge. He denies any classic anginal symptoms for his typical symptoms. He has noted some shortness of breath that is intermittent in nature over the months preceding this admission. PLAN: 1. I would continue with diuresis. I think we need to transition him to either an increased dose or a different diuretic, possibly torsemide. We could also discuss his case with Nephrology. 2. We are going to keep him another day or so, so that he can be evaluated by Podiatry to see if his procedure can be done so they can get the bone out and get more information about the nature of the infection. 3. I told him that there is a possibility, given the age of his graft, that the decrease in heart function may be related to occluded grafts. Stress test did not show any evidence for significant ischemia. Cardiac catheterization could be entertained, but he would have to be prepped adequately to give contrast to avoid any insult to the kidneys. He would be interested in that to see if there is anything that is salvageable from a coronary perspective that might help him feel better. I told him that we could consider that, but that would need to be discussed as either something done outpatient or in the next week or so. We would want to talk about that with his kidney doctor as well. In the interim, I think we can take him off heparin as I do not think he is having an acute coronary syndrome. We could keep him on his other oral medications including Plavix and aspirin and adjust his diuretics so he is on an oral medication. Again, torsemide might be a reasonable alternative and I would discuss with Nephrology about that. I spent 45 minutes reviewing the patient's old records and current studies, speaking with him and his family, examining him and communicating with the hospitalist ALBERT
[2017-01-10] MEDS: Insulin GLARgine 100 Unit/mL Syringe SUBQ SCH (20:15)
--- NOTE | 2017-01-10 20:56 | PCM.CHPPOD ---
Subjective Date of service Jan 10, 2017 History of Present Illness 71 year old male with non healing ulcer of the left plantar foot. Patient was scheduled for outpatient left 2nd ray resection for treatment of osteomyelitis of the left 2nd metatarsal, patient presented to day surgery with SOB and was directed to the ED for evaluation and admission. Denies any new pain in his left foot, no recent history of nausea, vomiting, fever or chills. Allergy Allergies: Coded Allergies: Penicillins (Verified Allergy, Severe, rash, 01/09/17) sulfamethoxazole (Verified Allergy, Unknown, 01/09/17) trimethoprim (Verified Allergy, Unknown, 01/09/17) lisinopril (Verified Adverse Reaction, Severe, COUGH, 01/09/17) Medications Allopurinol (Allopurinol) 100 Mg Tablet 300 MG PO QAM Amlodipine (Amlodipine) 10 Mg Tablet 10 MG PO QPM Ascorbic Acid (Vitamin C) 1,000 Mg Tab.chew 1,000 MG PO QAM Aspirin (Aspirin) 81 Mg Tablet 81 MG PO QAM Atorvastatin (Lipitor) 40 Mg Tablet 40 MG PO QPM Carvedilol (Carvedilol) 12.5 Mg Tablet 12.5 MG PO BID Clindamycin (Clindamycin) 150 Mg Capsule 300 MG PO QID Clopidogrel Bisulfate (Plavix) 75 Mg Tablet 75 MG PO QAM Colchicine (Colchicine) 0.6 Mg Capsule 0.6 MG PO BID PRN PRN PRN Cyclobenzaprine (Cyclobenzaprine) 10 Mg Tablet 10 MG PO TID PRN PRN For Spasm Furosemide (Lasix) 40 Mg Tablet 60 MG PO QAM Glipizide ER (Glipizide ER) 10 Mg Tab.er.24 10 MG PO BID Glucagon,Human Recombinant (Glucagen) 1 Mg/1 Ml Vial 1 MG IJ PRN Hydralazine (Hydralazine) 10 Mg Tablet 10 MG PO TID Hydrocodone-Acetaminophen 5-325 mg (Hydrocodone-Acetaminophen 5-325 mg) 1 Each Tablet 1 TABLET PO Q6H PRN PRN For Pain Insulin Glargine (Lantus U100 Solostar Insulin Pen) 100 Unit/1 Ml Insuln.pen 25 UNIT SUBQ QPM Insulin Lispro (Humalog Kwikpen) 200 Unit/Ml (3 Ml) Insuln.pen 10 UNIT SQ TIDAC 10U PLUS SLIDING SCALE DETERMINATION TIDAC Latanoprost (Latanoprost) 2.5 Ml Drops 1 GTT BOTH_EYES HS Levobunolol Ophth Soln (Levobunolol Ophth Soln) 5 Ml Drops 1 DROP BOTH_EYES QAM Levothyroxine (Levothyroxine) 150 Mcg Tablet 150 MCG PO QAM Losartan Potassium (Losartan Potassium) 100 Mg Tablet 50 MG PO QAM Multivitamin (Multi Vitamin Daily) 1 Each Tablet 1 EACH PO QAM Nitroglycerin SL (Nitrostat) 0.4 Mg Tab.subl 0.4 MG SL Q5MIN PRN PRN CHEST PAIN Prednisone (PredniSONE) 10 Mg Tablet 10 MG PO DAILY PRN PRN PRN Past Medical History Surgeries: Yes (CABG,B/L CATARACTS, STENT LSFA,LT FOOT RPR) Medical History: Surgical History: Social History Hx Alcohol Use: No Hx Substance Use: No Smoking Status: Former Smoker Podiatry Consult Exam Vital Signs Vital Sign - Last Date Time Temp Pulse Resp B/P Pulse Ox O2 Delivery O2 Flow Rate FiO2 01/10/17 20:07 36.5 69 16 183/77 95 Nasal Cannula 3.00 Intake and Output 01/09/17 01/09/17 01/10/17 Cumulative From/Thru 15:00 23:00 07:00 01/09/17 13:30 - 01/10/17 06:26 Intake Total 0 ml 389 ml 389 ml Output Total 1000 ml 1000 ml 2000 ml Balance -1000 ml -611 ml -1611 ml Intake Oral 0 ml 175 ml 175 ml IV Total 214 ml 214 ml Output Urine Total 1000 ml 1000 ml 2000 ml # Voids 1 1 Result Diagram: 01/10/17 0305 01/10/17 0305 Lab Test 01/09/17 13:45 01/10/17 03:05 01/10/17 15:10 01/10/17 17:15 Prothrombin Time 11.6sec (8.1-12.5) Prothromb Time International Ratio 1.08ratio Hemoglobin A1c 7.7% (4.8-5.6) Magnesium Level 2.2mg/dL (1.6-2.6) Pro-B-Type Natriuretic Peptide 71927mk/mL (0-376) White Blood Count 8.7th/mm3 (3.8-10.1) Red Blood Count 3.09mil/mm3 (4.40-5.80) Hemoglobin 8.6g/dL (13.8-17.2) Hematocrit 27.2% (41.0-50.0) Mean Corpuscular Volume 88.0fL (81-100) Mean Corpuscular Hemoglobin 27.8pg (27.0-35.0) Mean Corpuscular Hemoglobin Concent 31.6% (32.0-37.0) Red Cell Distribution Width 16.0% (12.3-15.4) Platelet Count 222bil/L (150-400) Neutrophils (%) (Auto) 68.8% (40-74) Lymphocytes (%) (Auto) 17.5% (14-46) Monocytes (%) (Auto) 10.3% (4-12) Eosinophils (%) (Auto) 2.9% (0-5) Basophils (%) (Auto) 0.3% (0-3) Sodium Level 134mEq/L (134-144) Potassium Level 4.2mEq/L (3.5-5.2) Chloride Level 97mEq/L (97-108) Carbon Dioxide Level 21mmol/L (18-29) Blood Urea Nitrogen 30mg/dL (8-27) Creatinine 1.67mg/dL (0.76-1.27) Estimat Glomerular Filtration Rate 43mL/min (>59) Glucose Level 167mg/dL (60-99) Calcium Level 9.0mg/dL (8.5-10.1) Total Bilirubin 0.3mg/dL (0.0-1.2) Aspartate Amino Transf (AST/SGOT) 13U/L (0-50) Alanine Aminotransferase (ALT/SGPT) 10U/L (0-44) Alkaline Phosphatase 62U/L (25-160) Troponin T 0.043ug/L (0.0-0.011) Total Protein 7.2g/dL (6.4-8.4) Albumin 2.8g/dL (3.4-5.0) Activated Partial Thromboplast Time 48.1sec (22.8-33.0) Hold Urine Received (Received) Exam Lower Extremities: Left: Extremity warm Lower Extremity Pulses: Doppler: Left Dorsalis Pedis Left Posterior Tibal Podiatry WOUND : Wound Location/Description Sub met 2 ulceration of the left foot which is linear in nature. probes to bone. moderate serous drainage noted. no purulent drainage. no surrounding erythema. no mal odor. wound is approximately 1cm x .3 cm x 1cm in depth. previous medial ulceration is healed. Dressing & Drainage Status: Changed Assessment & Plan Assessment osteomyelitis of the left 2nd metatarsal with chronic left foot ulceration, diabetic neuropathy. Problems: Plan Dressing changed today and wound inspected, wound flushed with betadine and saline solution, packed with 1/2 inch iodoform packing gauze, dry sterile gauze kerlix and a mildly compressive mickey bandage. Patient has been responding well to outpatient PO clindamycin, however while admitted it may be more appropriate to start IV antibiotic therapy as he may require care home outpatient IV antibiotics. Suggest IV clindamycin 600 mg IV Q8 or transition to IV Vancomycin plan for OR thursday provided medical clearance from hospitalist service. Suggest Consultation to Infectious disease following OR Thursday for outpatient antibiotic recommendation. Podiatry will follow daily VTE Prophylaxis: Other (On heparin drip for NSTEMI ) Chau Garcia DPM Jan 10, 2017 20:55
[2017-01-10 21:41] LABS: APPEARANCE,URINE CLEAR (CLEAR,HAZY); COLOR,URINE YELLOW (YELLOW); OCCULT BLOOD,URINE SMALL (NEGATIVE); PH,URINE 5.5 (5.0-8.0); UROBILINOGEN,URINE NORMAL (NORMAL)
[2017-01-11] VITALS (8 sets, daily range): BP systolic 151–181; BP diastolic 66–78; PULSE 62–73; RESP 16–18; O2SAT 94–98
[2017-01-11] MEDS: Insulin Human REGular 300 Unit/3 mL Inj SUBQ SCH ×4 (02:30→18:03)
--- NOTE | 2017-01-11 04:10 | NUR ---
Respiratory Patient maintaining SpO2 in the mid-90s on 3L by nasal cannula. Denies shortness of breath. Breath sounds moderately diminished in the bases, with some audible air movement in the lower lobes. Continue to monitor.
[2017-01-11] MEDS ORDERED: LEVOBUNOLOL 0.5% BOTH_EYES SCH (08:30)
[2017-01-11] MEDS: LEVOBUNOLOL 0.5% BOTH_EYES SCH (09:01)
[2017-01-11] MEDS: Furosemide 10 mg/mL 4 mL Inj IVPUSH SCH (09:02)
--- NOTE | 2017-01-11 09:10 | NUR ---
[facility] SIgned
--- NOTE | 2017-01-11 09:13 | NUR ---
Ambulationn Pt ambulating in room independently. Denies SOB or chest pain. Care continues
--- NOTE | 2017-01-11 11:58 | PCM.PNMED ---
Subjective Date of Service Jan 11, 2017 Subjective Patient seen and examined at bedside . No interval changes. No new complains. No chest pain , no shortness of breath. Afebrile Exam Vital Signs Vital Sign - Last Date Time Temp Pulse Resp B/P Pulse Ox O2 Delivery O2 Flow Rate FiO2 01/11/17 10:23 73 01/11/17 08:00 36.6 16 165/75 98 Nasal Cannula 2.00 Intake and Output 01/10/17 01/10/17 01/11/17 Cumulative From/Thru 14:59 22:59 06:59 01/09/17 13:30 - 01/11/17 05:16 Intake Total 735 ml 400 ml 1524 ml Output Total 9600 ml 500 ml 43062 ml Balance -8865 ml -100 ml -14897 ml Intake Oral 540 ml 400 ml 1115 ml IV Total 195 ml 409 ml Output Urine Total 9600 ml 500 ml 94050 ml # Voids 1 # Bowel Movements 0 0 Exam General /: NAD , in bed comfortably. HEENT :, PERRL, EOMI Neck: Supple ,No JVD, trachea is midline , no cervical lymphadenopathy Chest:. No deformity. normal respiratory effort Lung : .Scattered crackles. No wheezing Heart : S1 S2, irregular rate and rhythm , systolic 3/6 murmur at the right upper sternal border Abdomen: Benign LE : no calf tenderness . Left foot with dressing in place. Wound exam deferred Neuro : Oriented X3, non focal IVs and Medications Medications Reviewed: Medications were reviewed in detail Lab and Diagnostics Result Diagram: 01/11/17 0450 01/10/17 0305 X-Rays, CTs and MRIs Chest X-ray reviewed : Moderate interstitial pulmonary edema, along with small right subpulmonic pleural effusion, suspicious for congestive heart failure Today chest X-ray personality reviewed : Improvement in Pulmonary edema 12-lead ECG St depression in lateral leads Assessment & Plan 1. Acute Systolic Heart Failure Started on diuretic , oxygen. Strict I/O . Fluid restriction to 1.5 liters daily. Echocardiogram . Patient was discussed with confectionery laboratory manager Independent Marketing Consultant by ER physician and willl see pt in consultation 2. NSTEMI Troponin slightly up today to 0.04. Patient has known h/o of CAD s/p CABG . Recent stress test back in [facility] shows fixed defect but overall abnormal perfusion . On Aspirin, Plavix, BB amd ARB Continue heparin infusion Nitroglycerine for chest pain,and morphine sulfate for chest pain not relived by nitroglycerine . Obtain lipid profile noted.Patient on statin Cardiology consult and recommendation appreciated. No intervention at this time 3 . Pulmonary edema : Due to # 1 and 2 . Continue diuretic. Chest X-ray this morning shows improvement 4. 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 CKD stage III. Likely diabetic nephropathy or and hypertensive nephropathy Baseline creatinine is 1.8 -2 . Creatinine 1.6 today Monitor renal function . Avoid nephrotoxic agent 6. Right foot Osteomyelitis and Diabetic Foot Ulcer Continue PO clyndamycin . Podiatry consult and recommendation noted . Patient is scheduled to the OR on Thursday for debridment / Biopsy Foot surgery to be re-scheduled Clinically and hemodinamilcally stable. Seen by cardiology. No intervention at this time Infectious disease consult pending for advice about antibiotics. Patient is being arranged by podiatry for OR on thursday for biopsy and debridment VTE Prophylaxis: Other (On heparin drip for NSTEMI ) Resuscitation Status: CPR: Attempt Resuscitation Time spent 35 minutes James Hardy MD Jan 11, 2017 11:58
--- NOTE | 2017-01-11 14:09 | CONS ---
[address] [address] CONSULTATION REPORT PATIENT: ELISHA MACK : 1945 MR#: [id number] ADMIT: 01/09/2017 JOB ID: [id number] DATE OF SERVICE: 01/11/[address] Hardy for this consult. REASON FOR CONSULTATION: Chronic osteomyelitis, left foot. HISTORY OF THE PRESENT ILLNESS: The patient is a complex, 71-year-old gentleman with underlying diabetes, coronary artery disease, peripheral vascular disease, and renal insufficiency, who was admitted with symptoms of progressive congestive heart failure. His admission was back on January 09, which was originally planned as the date when he would undergo surgery to his left foot for debridement and culturing of his chronic osteomyelitis on that left foot. Obviously, his surgery was canceled. The patient was admitted here and he has been comprehensively evaluated and treated by Cardiology and the hospitalist team. There are now tentative plans to reschedule his debridement to tomorrow, January 12, in the late afternoon. The patient tells me he has had a long history of infections involving the left foot. At one point last year he received three weeks of IV antibiotics through [facility], though we are not certain as to which antibiotics and exactly what was the organism. The patient and his seem to think that the organism was never identified. The patient has had chronic ulcers involving that left foot and most recently developed a plantar ulcer back in about August 2016. He has been on oral clindamycin as an outpatient, having had great deal of difficulty when he has previously given oral Bactrim in that it gave him rash and gastrointestinal symptoms. The patient denies having had any real change in the status of his left foot and its ulceration over the past few weeks. He notes he has been taking the oral clindamycin without much in the way of difficulty. He has had no fevers, chills, or sweats, and there has been minimal drainage from the ulcer at the base of the foot. PAST MEDICAL HISTORY: 1. Type 2 diabetes. 2. History of recurrent diabetic foot infections, especially with the left foot, both on the medial forefoot as well as the plantar area with recurrent ongoing oral antibiotic therapy for chronic osteomyelitis of the left second metatarsal. 3. Peripheral vascular disease. 4. Hypertension. 5. Chronic renal insufficiency. 6. Hyperlipidemia. 7. Organic heart disease. a. Coronary artery disease. b. Status post CABG in 1999. c. Congestive heart failure. 8. History of allergy to PENICILLIN which is ill characterized as well as sulfa. SOCIAL HISTORY: The patient is an ex-smoker having quit about 30 years ago. He is not a heavy consumer of alcohol. He used to work for the [employer]. He is now retired. FAMILY HISTORY: Negative for tuberculosis first- or second-degree relatives. REVIEW OF SYSTEMS: No headache. No sore throat, cough, shortness of breath or chest pain. Shortness of breath he had on admission has resolved. No nausea, vomiting, diarrhea, or dysuria. Note that the patient has significant neuropathy in both feet. He has not had any significant drainage from his left foot ulcer recently. Remainder of the review of systems is negative. PHYSICAL EXAMINATION: Reveals an afebrile gentleman, in no acute distress. Sitting up, very conversational. he has been afebrile since admission. Two days ago. Temperature is 36.6 right now. Pulse 64, respiratory rate 16, blood pressure 160/72, saturating well on 2 L. He is in no acute distress whatsoever. He is alert and oriented. Eyes without conjunctivitis. Oral cavity negative. Neck supple. No adenopathy. Lungs are clear. Cardiac tones: Regular rate and rhythm but with a very harsh, about 3/6 systolic ejection murmur heard throughout the precordium. The abdomen is soft and nontender. No suprapubic fullness is noted. The patient does not have a Tejeda catheter. He has no skin rash of significance. No evidence of synovitis. In the extremities he has diminished dorsal pedal and posterior tibial pulses bilaterally, more so on the left, but there is hardly any palpable pulse. He has slow capillary refill on the left. Both feet have very dry, crusty skin. The left foot has packing placed in about the mid 2nd metatarsal area, and I examined this area very carefully. There is no purulence or tenderness around it, but of course, the patient had very diminished sensation in his feet bilaterally so it is not clear that he would feel anything, but there is no evidence of infection surrounding this plantar ulcer. Remainder of the physical exam unremarkable. Labs include white count 11,000 when he came in, 78% segs; now 8000. His creatinine is 1.67. His liver function tests are normal. Albumin 2.8. Urinalysis: No white cells are seen. We have no recent cultures and, in fact, no cultures at all, and I contacted the lab. There is essentially no micro on this patient from this hospital at any point. Note that he may have some micro at [facility] from last year's evaluation and three weeks of IV antibiotics, however. IMAGING: Includes a chest x-ray which shows resolving CHF. It was worse on the January 09 x-ray. Today's is improve. There is an x-ray of the foot from three weeks ago that shows possible osteomyelitis, chronic osteo involving the first MTP joint, as well as the second metatarsal head and neck. IMPRESSION: This patient appears to have chronic osteomyelitis of his left foot. He was admitted because of congestive heart failure which is rapidly improving with excellent medical management. At this point, I would withhold all antibiotics as there are plans to operate and debride tomorrow. The wolf to this case will be obtain an organism so we can better direct our IV or oral outpatient antibiotics for the termite control technician to resolve this chronic osteo and I think withholding antibiotics in this completely nontoxic gentleman is a prudent maneuver to try and increase our yield when he eventually undergoes surgery. RECOMMENDATIONS: 1. I would discontinue the oral clindamycin he is receiving. 2. I would not give any antibiotics until the time of surgery at which time he could be given prophylactic single dose of vancomycin if desired by the piece hand. We will then send tissue for routine AFB and fungal cultures and hopefully identify a pathogen causing his chronic osteomyelitis. 3. Also note that I will be asking to obtain the records from [facility]. Thank you very much.
--- NOTE | 2017-01-11 14:33 | PCM.PNPOD ---
Subjective Date of Service: Jan 11, 2017 Date of Service: Jan 11, 2017 Visit Information: Reason for Visit Acute Heart Failure, N Stemi Surgery/Surgery Date Post-Op Day # Date of Admission: Jan 09, 2017 at 16:04 Hospital Day # Subjective: patient evaluated at bedside in NAD. no new events overnight. dressing clean and dry without noted strikethrough. patient denies any pain. Postop General: No Complaints Gastrointestinal: Good Appetite Pain Management: No or Minimal Pain Objective Vital Sign - Last Date Time Temp Pulse Resp B/P Pulse Ox O2 Delivery O2 Flow Rate FiO2 01/11/17 11:54 36.6 64 16 160/72 96 Nasal Cannula 2.00 Intake and Output 01/10/17 01/10/17 01/11/17 Cumulative From/Thru 15:00 23:00 07:00 01/09/17 13:30 - 01/11/17 05:16 Intake Total 735 ml 400 ml 1524 ml Output Total 9600 ml 500 ml 27927 ml Balance -8865 ml -100 ml -73331 ml Intake Oral 540 ml 400 ml 1115 ml IV Total 195 ml 409 ml Output Urine Total 9600 ml 500 ml 10819 ml # Voids 1 # Bowel Movements 0 0 Result Diagram: 01/11/17 0450 01/10/17 0305 Lab Test 01/09/17 13:45 01/10/17 03:05 01/10/17 15:10 01/10/17 17:15 Prothrombin Time 11.6sec (8.1-12.5) Prothromb Time International Ratio 1.08ratio Hemoglobin A1c 7.7% (4.8-5.6) Magnesium Level 2.2mg/dL (1.6-2.6) Pro-B-Type Natriuretic Peptide 24201ha/mL (0-376) White Blood Count 8.7th/mm3 (3.8-10.1) Red Blood Count 3.09mil/mm3 (4.40-5.80) Mean Corpuscular Volume 88.0fL (81-100) Mean Corpuscular Hemoglobin 27.8pg (27.0-35.0) Mean Corpuscular Hemoglobin Concent 31.6% (32.0-37.0) Red Cell Distribution Width 16.0% (12.3-15.4) Platelet Count 222bil/L (150-400) Neutrophils (%) (Auto) 68.8% (40-74) Lymphocytes (%) (Auto) 17.5% (14-46) Monocytes (%) (Auto) 10.3% (4-12) Eosinophils (%) (Auto) 2.9% (0-5) Basophils (%) (Auto) 0.3% (0-3) Sodium Level 134mEq/L (134-144) Potassium Level 4.2mEq/L (3.5-5.2) Chloride Level 97mEq/L (97-108) Carbon Dioxide Level 21mmol/L (18-29) Blood Urea Nitrogen 30mg/dL (8-27) Creatinine 1.67mg/dL (0.76-1.27) Estimat Glomerular Filtration Rate 43mL/min (>59) Glucose Level 167mg/dL (60-99) Calcium Level 9.0mg/dL (8.5-10.1) Total Bilirubin 0.3mg/dL (0.0-1.2) Aspartate Amino Transf (AST/SGOT) 13U/L (0-50) Alanine Aminotransferase (ALT/SGPT) 10U/L (0-44) Alkaline Phosphatase 62U/L (25-160) Troponin T 0.043ug/L (0.0-0.011) Total Protein 7.2g/dL (6.4-8.4) Albumin 2.8g/dL (3.4-5.0) Activated Partial Thromboplast Time 48.1sec (22.8-33.0) Urine Color Yellow (YELLOW) Urine Appearance Clear (CLEAR,HAZY) Urine pH 5.5 (5.0-8.0) Urine Specific [place] 1.020 (1.003-1.035) Urine Protein 300mg/dL (NEG,TRACE) Urine Glucose (UA) Negativemg/dL (NEGATIVE) Urine Ketones Negativemg/dL (NEGATIVE) Urine Occult Blood Small (NEGATIVE) Urine Nitrite Negative (NEGATIVE) Urine Bilirubin Negative (NEGATIVE) Urine Urobilinogen Normalmg/dL (NORMAL) Urine Leukocyte Esterase Negative (NEGATIVE) Urine RBC 3-10/hpf (0-2) Urine WBC 0-5/hpf (0-5) Urine Epithelial Cells Few/hpf (NONE-MOD) Urine Crystals Amorphous urates (NONE Urine Bacteria Few/hpf (NONE-FEW) Urine Hyaline Casts None/lpf (NONE) Urine Granular Casts None seen (NONE SEEN) Urine Waxy Casts None seen (NONE SEEN) Urine Red Blood Cell Casts None seen (NONE SEEN) Urine White Blood Cell Casts None seen (NONE SEEN) Urine Mucus Present (None Seen) Urine Trichomonas None seen (NONE SEEN) Urine Yeast None (NONE SEEN) Urinalysis Comment None Urine Culture Reflexed Not indicated Hold Urine Received (Received) Test 01/11/17 04:50 Hemoglobin 8.9g/dL (13.8-17.2) Hematocrit 27.8% (41.0-50.0) Exam General: Alert, Oriented X3, No Acute Distress Lower Extremities: Left: Extremity warm Lower Extremity Pulses: Doppler: Left Dorsalis Pedis Left Posterior Tibal Postop Sensory Motor: Distal Motor Intact, Motor 5/5, Decreased Sensation Podiatry WOUND : Wound Location/Description left plantar submet 2 ulceration full thickness with moderate serous drainage. no mal odor. no purulent drainage noted. no change in wound measurements Assessment & Plan Impression Osteomyelitis of the 2nd metatarsal left foot with diabetic ulceration Problems: Plan dressing changed today. wound packed with iodoform gauze and DSD. plan for OR tomorrow for resection of the left 2nd metatarsal, likely after 5pm. please make NPO after 9AM 01/12/17 follow Antibiotic recs per Dr. Hackett, appreciate input. podiatry will follow daily VTE Prophylaxis: Other (On heparin drip for NSTEMI ) Chau Garcia DPM Jan 11, 2017 14:33
[2017-01-11] MEDS: HYDROcodone-APAP 5-325 mg Tablet PO PRN (17:18)
--- NOTE | 2017-01-11 20:05 | NUR ---
Ambulation Pt ambulating around unit several times this shift with . Steady gait with boot on left foot. Tolerated well. Care continues.
[2017-01-11] MEDS: Insulin GLARgine 100 Unit/mL Syringe SUBQ SCH (21:21)
--- NOTE | 2017-01-12 | NUR ---
transfer patient transferred to [facility]. all belongings sent with patient. report called to alivia madera.
--- NOTE | 2017-01-12 00:21 | NUR ---
Transfer Patient arrived on unit at 2355 with all belongings in two bags that were placed in closet. Arrived via wc and able to self transfer to bed. Oriented to call light and bed controls. Denied need for pain medication. New IV placed prior to arrival.
[2017-01-12] MEDS: Insulin Human REGular 300 Unit/3 mL Inj SUBQ SCH ×2 (02:51→08:40)
[2017-01-12 06:19] VITALS: BP 144/68; PULSE 68; RESP 20; O2SAT 94
[2017-01-12] MEDS ORDERED: Lactated Ringer's 1,000 ML IV ONE (07:59)
[2017-01-12] MEDS: Furosemide 10 mg/mL 4 mL Inj IVPUSH SCH (08:41)
[2017-01-12] MEDS: LEVOBUNOLOL 0.5% BOTH_EYES SCH (08:41)
[2017-01-12 10:30] VITALS: PULSE 68
[2017-01-12 10:41] VITALS: BP 162/69; PULSE 64; RESP 18; O2SAT 96
--- NOTE | 2017-01-12 12:10 | PCM.PNMED ---
Subjective Date of Service Jan 12, 2017 Subjective No new problems overnight. I reviewed this with Dr. Oseguera, he has concerns about patient's cardiac status. Exam Vital Signs Vital Sign - Last Date Time Temp Pulse Resp B/P Pulse Ox O2 Delivery O2 Flow Rate FiO2 01/12/17 10:41 36.6 64 18 162/69 96 Nasal Cannula 2.00 Intake and Output 01/11/17 01/11/17 01/12/17 Cumulative From/Thru 14:59 22:59 06:59 01/09/17 13:30 - 01/12/17 06:19 Intake Total 780 ml 200 ml 2504 ml Output Total 950 ml 1300 ml 31670 ml Balance -170 ml -1100 ml -18368 ml Intake Oral 780 ml 200 ml 2095 ml IV Total 409 ml Output Urine Total 950 ml 1300 ml 60417 ml # Voids 1 # Bowel Movements 0 0 Exam S1S2 present, harsh systolic murmur mild to minimal edema in legs, no JVD Lungs with some bibasilar crackles/GI, soft and non acute Lab and Diagnostics Result Diagram: 01/11/17 0450 01/12/17 0503 X-Rays, CTs and MRIs Chest X-ray reviewed : Moderate interstitial pulmonary edema, along with small right subpulmonic pleural effusion, suspicious for congestive heart failure Today chest X-ray personality reviewed : Improvement in Pulmonary edema 12-lead ECG St depression in lateral leads Assessment & Plan 1. Acute Systolic Heart Failure, poa, active - continue with diuresis -daily standing weights 2. NSTEMI -Patient has known h/o of CAD s/p CABG . -On Aspirin, Plavix, BB amd ARB -Dr. oseguera is considering cardiac cath, we will hold surgury pending his input 4. IDDM Type II, poa, active -resume nutritional, correctional, basal insulin 5. CKD stage III. Likely diabetic nephropathy or and hypertensive nephropathy -Baseline creatinine is 1.8 -2 . 6. Right foot Osteomyelitis and Diabetic Foot Ulcer, poa, active -have page out to DR. Garcia to discuss, no antibiotics at this time per ID VTE Prophylaxis: Other (On heparin drip for NSTEMI ) Resuscitation Status: CPR: Attempt Resuscitation Zhanna Jackson MD Jan 12, 2017 12:10
[2017-01-12] MEDS: Insulin LISPRO 300 Unit/3 mL Inj SUBQ SCH ×2 (13:16→17:19)
[2017-01-12 13:26] VITALS: BP 160/69; PULSE 66; RESP 18; O2SAT 96
[2017-01-12] MEDS: Sodium Chloride LOK Flush 10 mL Syringe IVFLUSH SCH (16:27)
--- NOTE | 2017-01-12 17:03 | PROG NOTE ---
[address] [address] PROGRESS NOTE PATIENT: ELISHA MACK : 1945 MR#: [id number] ADMIT: 01/09/2017 JOB ID: [id number] DATE: 01/12/2017 HISTORY OF PRESENT ILLNESS: The patient is a 71-year-old patient with a history of diabetes and smoking with chronic ischemic heart disease as well as peripheral arterial disease and chronic renal insufficiency who presented on Thursday morning to the emergency department with acute pulmonary congestion. In retrospect, he gives a history of gradually progressive exertional dyspnea over the past couple of years, perhaps over the past year. He is followed by Dr. Rajput in our office for his cardiac and peripheral arterial disease and was seen most recently in November at which point the patient did not admit to significant symptoms of exertional dyspnea or angina. As part of routine followup, Dr. Rajput ordered a nuclear cardiac stress study which was done actually prior to his visit on November 05. This was notable for the fact that the patient developed symptoms of chest discomfort with some ST depression following the Lexiscan injection. Ejection fraction was noted to be moderately low at 44% with decreased thickening and hypokinesis of the lateral wall. I have personally reviewed the images which demonstrate a fixed defect in the proximal posterolateral wall with significant area of reversible hypoperfusion involving the mid and distal posterolateral wall and distal lateral apex. The interpretation suggested a predominantly fixed defect and no further specific intervention was performed, however, the patient developed symptoms of progressive dyspnea with orthopnea and paroxysmal nocturnal dyspnea on evening. Spent most of the night sitting up on the edge of the bed and presented to the emergency department Thursday for evaluation. He was also scheduled at that time for an elective outpatient metatarsal resection for chronic osteo which was canceled. The patient was admitted to the hospital and diuresed with rapid improvement in his symptomatic pulmonary congestion. An echocardiogram was performed, which demonstrated a significant reduction in left ventricular systolic function with an estimated ejection fraction of around 30% to 35%. What is notable is the fact that the patient has a prominent area of severe hypokinesis involving the posterior wall, the mid and distal lateral wall and distal lateral apex as well as moderate hypokinesis involving the inferior wall. This patient also has a history of known aortic stenosis. The aortic valve shows significant reduction in leaflet excursion with a peak aortic velocity only 2.8 m/secondary to, although this is in the setting of significant ventricular systolic dysfunction compared with a peak aortic velocity between 3 and 3.5 m/sec on previous exams. This gentleman underwent coronary artery bypass graft surgery in March 2000 with an internal mammary bypass graft to the LAD, right internal mammary graft to the PDA and a left radial graft to the distal circumflex. At the time of his surgery, his LAD and right coronary arteries were totally occluded. PHYSICAL EXAMINATION: This gentleman appears comfortable. His jugular venous pressure looks normal. Lung agee demonstrate a few scattered rales and rhonchi. Cardiac examination demonstrates a grade 3/6 mid-peaking systolic ejection murmur with a normal S1 and normal S2. There is also a 2/6 holosystolic murmur audible at the apex radiating to the axilla. No obvious ventricular gallop. Abdomen is unremarkable. I did not examine his femoral arteries. His left foot is wrapped. There is evidence of chronic left lower extremity edema which he has noted ever since his peripheral vascular stenting procedure in 2014, though an outpatient venous Doppler examination was negative. No obvious neurologic or musculoskeletal findings. LABORATORY DATA: Notable for his chronic renal insufficiency. He has a history of variable creatinines as high as 2.2-2.3 a couple of years ago. Last year, he had a creatinine of 1.35 and his creatinine on admission today is 1.6-1.7. It was 1.9 as an outpatient a month and a half ago. Troponin levels are moderately elevated in a nonspecific fashion and his BNP is quite high at 10,500. His CBC is notable for a hemoglobin of 8.9 and hematocrit of 27.8. Platelet count is normal. Chest x-ray on admission showed clear evidence of prominent pulmonary congestion with moderate pulmonary edema and right lower lobe pleural effusion. Follow-up chest x-ray on January 10 demonstrates a significant interval improvement, but some residual congestion and right pleural fluid. IMPRESSION: This gentleman clearly has an acute pulmonary congestion likely related to his underlying ischemic heart disease. Echocardiogram shows a significant posterior, inferior and lateral wall motion abnormality and his nuclear medicine scan shows a predominantly reversible defect in the region of the circumflex. I have spoken with Dr. Jackson, the hospitalist, as well as Dr. Arguello, podiatry, and recommended that his elective metatarsal resection be postponed. I have also reviewed this case with Dr. Elmo Henry, our rail track layer, and he will evaluate this patient for diagnostic coronary angiography. Given his renal insufficiency, I have recommended that attention be focused on his left circumflex vessel, both [place] and the radial graft to the circumflex. If no significant lesions are identified in that territory, then it may be reasonable to look at the right coronary artery and right internal mammary graft, but his echocardiogram and nuclear medicine scan certainly point to the circumflex as the etiology for his acute issues. I think we can probably approach this from the right groin, though we may want to do a vascular duplex Doppler of his right femoral artery to make sure that it is patent. This gentleman also has aortic stenosis, but that appears clinically to be moderately severe and not critical. Ultimately, he may be a good candidate for TAVR procedure, but that likely is well down the road. I have reviewed these findings and recommendations with the patient and will look forward to Dr. Henry's consult as well.
[2017-01-12] MEDS: HYDROcodone-APAP 5-325 mg Tablet PO PRN (17:19)
--- NOTE | 2017-01-12 18:00 | NUR ---
Late Medications/IVF Pt on 12.5mg PO Coreg. Not brought up with pt morning medications. Call to pharmacy for delivery of med. Given late. Plavix and Aspirin also held this AM d/t pending afternoon surgery. After seen by Cardiology and surgery postponed, pt received both Aspirin and Plavix doses. Pt with NS at 80ml/hr, remains on 2.5L NC, no c/o SOB with start of IVF; lungs clear. Pt instructed to call if noticing SOB - pt and pt understanding. After 1.5hrs of infusing, pt denied any SOB. Enc CDB. No acute issues this shift. Pleasant and cooperative with care. Care continues.
--- NOTE | 2017-01-12 18:35 | PROG NOTE ---
[address] [address] PROGRESS NOTE PATIENT: ELISHA MACK : 1945 MR#: [id number] ADMIT: 01/09/2017 JOB ID: [id number] DATE: 01/12/2017 REASON FOR FOLLOWUP: Chronic osteomyelitis, left second metatarsal. INTERVAL HISTORY: Over the weekend, the patient has improved considerably. He is having less symptoms of congestive heart failure and no issues with his osteomyelitis in that he has no fevers, chills, sweats, or pain in the foot. PHYSICAL EXAMINATION: Reveals a comfortable gentleman. Temp 36.4, blood pressure 160/69, saturating well on 2 L. He is in no acute distress. His lungs are clear posteriorly. Cardiac tones: Regular rate and rhythm. The left foot is unchanged from the exam of two days ago. No obvious evidence of infection. LABORATORIES: Include a white count 8700, basically normal diff. LFTs normal. Creatinine 1.74. Micro studies: None available from here and really no new data whatsoever. IMPRESSION: This gentleman has chronic osteomyelitis of his left foot. He was admitted with heart failure and there have been plans to do surgery today. The plan now is to hold off on surgery while more cardiac workup is done. We had held his chronic oral clindamycin for his chronic osteomyelitis because of anticipated surgery being in the next day or two and we wanted to maximize the microbiologic culture yield. Now that his surgery has been delayed, will go ahead and restart it. RECOMMENDATIONS: 1. Will restart the oral clindamycin. 2. I would stop the clindamycin again about 48 hours before surgery once we know when that is. 3. At the time of surgery, will need not only histopath but cultures for AFB, fungus and especially routine bacterial cultures. 4. ID will continue to follow along with you.
[2017-01-12 20:24] VITALS: BP 183/77; PULSE 74; RESP 20; O2SAT 95
[2017-01-12] MEDS: Insulin GLARgine 100 Unit/mL Syringe SUBQ SCH (22:11)
[2017-01-13] VITALS (22 sets, daily range): BP systolic 130–189; BP diastolic 58–85; PULSE 57–75; RESP 12–20; O2SAT 93–98
[2017-01-13] MEDS ORDERED: 0.9% Sodium Chloride 1,000 ML IV ONE (01:00)
--- NOTE | 2017-01-13 04:58 | NUR ---
Anxiety/Shortness of breath Pt experienced no episodes of anxiety. Stated he is just ready to get his procedure over and find out what the next step will be. He is wanting to get his foot surgery done but said "what is will be." Pt had 0 c/o SOB all shift, ambulating to BR with steady gate. NPO since 0200 per orders.
[2017-01-13 05:57] LABS: BASOPHILS % (AUTO) 0.5 % (0-3); EOSINOPHILS % (AUTO) 4.1 % (0-5); INR 1.09 ratio; MONOCYTES % (AUTO) 10.4 % (4-12); Mean Corpuscular Hemoglobin 27.8 pg (27.0-35.0); Mean Corpuscular Volume 90.3 fL (81-100); NEUTROPHILS % (AUTO) 62.6 % (40-74); Platelet Count 212 bil/L (150-400)
[2017-01-13 06:18] LABS: TROPONIN T 0.042 ug/L (0.0-0.011)
[2017-01-13] MEDS ORDERED: Heparin 10,000 Unit/1,000 mL NS Premix IV ONE (07:29)
[2017-01-13] MEDS ORDERED: Heparin 1,000 Unit/mL 10 mL Inj ONE (07:29)
[2017-01-13] MEDS ORDERED: Nitroglycerin 50,000 mcg/250 mL D5W Premix IV ONE (07:29)
[2017-01-13] MEDS ORDERED: Heparin 1,000 Units/500 mL NS Premix IV ONE (07:29)
[2017-01-13] MEDS ORDERED: 0.9% Sodium Chloride 1,000 ML ONE (07:30)
[2017-01-13] MEDS: Insulin LISPRO 300 Unit/3 mL Inj SUBQ SCH ×3 (07:30→18:16)
[2017-01-13] MEDS ORDERED: Heparin 5,000 Units/500 mL NS Premix IV ONE (07:30)
[2017-01-13] MEDS ORDERED: fentaNYL-PF 50 mCg/mL 2 mL Inj ONE ×2 (08:01→08:53)
--- NOTE | 2017-01-13 08:02 | NUR ---
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
--- NOTE | 2017-01-13 08:08 | PCM.PNMED ---
Subjective Date of Service Jan 13, 2017 Subjective Uneventful night,little SOB this AM. Troponins remain flat with normal CPK. No chest pain noted. Exam Vital Signs Vital Sign - Last Date Time Temp Pulse Resp B/P Pulse Ox O2 Delivery O2 Flow Rate FiO2 01/13/17 05:07 36.6 63 18 148/71 95 Nasal Cannula 2.00 Intake and Output 01/12/17 01/12/17 01/13/17 Cumulative From/Thru 15:00 23:00 07:00 01/09/17 13:30 - 01/13/17 05:07 Intake Total 800 ml 1295 ml 4599 ml Output Total 800 ml 650 ml 54042 ml Balance 0 ml 645 ml -61613 ml Intake Oral 800 ml 320 ml 3215 ml IV Total 975 ml 1384 ml Output Urine Total 800 ml 650 ml 08364 ml # Voids 2 3 # Bowel Movements 1 0 1 Exam S1S2 present, harsh systolic murmur, 3 over 6, mild to minimal edema in legs, no JVD Lungs with some bibasilar crackles GI, soft and non acute Lab and Diagnostics Result Diagram: 01/13/1744401/13/17 044 X-Rays, CTs and MRIs Chest X-ray reviewed : Moderate interstitial pulmonary edema, along with small right subpulmonic pleural effusion, suspicious for congestive heart failure Today chest X-ray personality reviewed : Improvement in Pulmonary edema 12-lead ECG St depression in lateral leads Assessment & Plan 1. Acute Systolic Heart Failure, poa, active - continue with lasix 40 IV daily -daily standing weights -repeat BMP, BNP, CXR in AM -on an ARB 2. NSTEMI, poa, active -Patient has known h/o of CAD s/p CABG . -On Aspirin, Plavix, BB, ARB, statin -focused cardiac cath today 4. IDDM Type II, poa, active -resume nutritional, correctional, basal insulin -patient to dose own correctional and nutritional insulin 5. CKD stage III. Likely diabetic nephropathy or and hypertensive nephropathy -Baseline creatinine is 1.8 -2 -BMP in am 6. Right foot Osteomyelitis and Diabetic Foot Ulcer, poa, active -foot procedure on ho;ld-oral clindamycin restarted but stop 48 hours prior to procedure -need cultures for AFB, Fungal, Bacterial at time of procedure VTE Prophylaxis: Other (On heparin drip for NSTEMI ) Resuscitation Status: CPR: Attempt Resuscitation Zhanna Jackson MD Jan 13, 2017 08:08
[2017-01-13] MEDS: Sodium Chloride LOK Flush 10 mL Syringe IVFLUSH SCH ×4 (08:30→21:43)
[2017-01-13] MEDS: LEVOBUNOLOL 0.5% BOTH_EYES SCH (08:30)
--- NOTE | 2017-01-13 09:19 | NUR ---
JUAN: Patient is out of room, check back this afternoon vs. tomorrow
--- NOTE | 2017-01-13 09:30 | NUR ---
pt is in procedure unable to get current vitals Addendum: 01/13/17 at 0930 by IRISH HAMILTON CNA Amended: Links added.
--- NOTE | 2017-01-13 10:15 | NUR ---
Post heart cath: Patient returned from [employer] at 0930 when sheath DC'd by Cath Tech. He is alert, denies pain. Site is soft and dry. Monitor displays NSR. Continues with 3L 02.
--- NOTE | 2017-01-13 12:19 | NUR ---
Respiratory status: Patient noted to have audible expiratory wheezes while eating. He also notes slight SOB with eating. Sat level at 94% on 3LNP. Order received to administer Lasix 40 mg IV. Will complete ordered bladder scan.
[2017-01-13] MEDS: Furosemide 10 mg/mL 4 mL Inj IVPUSH SCH (12:20)
--- NOTE | 2017-01-13 14:11 | CS94 ---
[address] [address] DIAGNOSTIC CARDIAC CATHETERIZATION PATIENT: ELISHA MACK : 1944 MR#: [id number] ADMIT: 01/09/2017 JOB ID: [id number] PROCEDURE NOTE--CARDIAC CATHETERIZATION LABORATORY: SERVICE DATE: Friday, January 13, 2017. BUILDING COMPONENTS DESIGNER: Elmo Henry M.D. PROCEDURES: 1. Coronary Angiogram--Urgent. 2. Graft Angiography: a. ASHLEY to LAD. b. REYNALDO to PDA. c. Radial artery graft to OM. CLINICAL DETAILS: This 71-year-old man presents to the Catheterization Laboratory for urgent diagnostic coronary angiogram after he initially came to the hospital four days ago for a planned resection of 2nd left foot metatarsal for chronic osteomyelitis in the setting of IDDM and chronic lower extremity peripheral vascular disease. He noted he had had the onset of dyspnea and orthopnea and PND the night previously (sitting at the side of the bed all night to breathe). Planned outpatient surgery was deferred; and cardiac workup was pursued. ECG shows lateral ST depression. Troponin was mildly elevated, but flat, in the setting of chronic renal insufficiency. CXR showed severe CHF initially; and improved after diuresis. Echocardiogram shows moderately diminished left ventricular function with ejection fraction about 40%; and this is decreased from 2015. He also has multiple wall motion defects including anterior, inferior, and lateral hypokinesis. There is moderate aortic stenosis in the setting of left ventricular dysfunction with peak AVG 32; and mean AVG 17; and derived JESUSITA 1.3 cm2. Mild MR is seen; and mild pulmonary hypertension with PASP estimated 42 mmHg. A Lexiscan myocardial perfusion study done in October,, showed ejection fraction of 40%-45% with an inferolateral defect that is both fixed, and has some degree of reperfusion consistent with ischemia. He was diuresed over 10 L, and improved; but continued to have occasional episodes of PND. In the hospital note also chronic renal insufficiency with a creatinine currently 1.7, but previously well above 2 chronically. There is also a history of peripheral vascular disease--including a stent of mid left SFA in 2014; and in November,, bilateral arterial lower extremity Dopplers do not show severe disease at the level of the femoral arteries. He had CAB in 1999; and no cardiac procedures thereafter; and the Operative Note from [facility], [place], [place], indicates all arterial grafting as noted above. PROCEDURAL DETAILS: I evaluated him prior to the procedure; and discussed the procedure including possible risks and complications with him and his . We discussed consideration of treatment options dictated by the angiogram that could include medical therapy, possible percutaneous coronary intervention (PCI); or even coronary bypass surgery if needed. We discussed bleeding, infection and blood clot; as well as injury to nerve, artery, vein or kidney; and also arrhythmia, drug reaction; or others. We discussed treatment as needed including surgery, pacemaker, transfusion. We discussed more serious complications that can occur, including stroke, heart attack, cardiac arrest, ; and and emergency surgery, including transfer for coronary bypass surgery. After discussion and questions, he signed informed consent to proceed. He was brought to the Catheterization Laboratory after preprocedure hydration where he was prepped sterilely and draped. He is on aspirin, and chronic Plavix after his SFA stent. CORONARY ANGIOGRAM: Arterial access was obtained without difficulty using fluoroscopic localization over the femoral head and modified Seldinger technique as well as ultrasound localization to insert a 10 cm 6-Ecuadorean side-arm sheath by modified Seldinger technique in the right common femoral artery. Catheters were advanced and exchanged over a long 0.035 inch J tipped guide wire. First, the left coronary artery was engaged with a 6-Ecuadorean JL-4 diagnostic catheter. Then, the right coronary artery was engaged with a 6-Ecuadorean JR-4 catheter. GRAFT ANGIOGRAPHY: The JR-4 catheter was used to engage the free left radial graft at the site of a fluoroscopically visible Effler ring Then, the REYNALDO graft was engaged with the JR-4 catheter after a 6-Ecuadorean ASHLEY catheter did not engage well. Then, the ASHLEY was engaged using the ASHLEY catheter. LV not entered. Procedure without difficulty. Patient tolerated procedure well. No complications. A side-arm sheath angiogram shows access in the common femoral artery; but there is extensive heavy calcification and some arterial narrowing. Arterial hemostasis was obtained later without difficulty using manual pressure after ACT was below 170 seconds. The patient was transferred from the Catheterization Laboratory chest-pain free, and stable, to the [facility] for ongoing care. I discussed the findings, impressions, and management considerations with the patient, his , his children; and with the Hospitalist team; and with Cardiology. FINDINGS: LMCA: Note extensive heavy coronary calcification. The left main coronary artery appears short, diffusely diseased, and small with about 50% distal narrowing. LAD: Occluded at Ostium. The LAD appears to be flush occluded at its ostium with LMCA; is not seen on antegrade injections. This is consistent with the description of the angiogram in the operative note from his coronary bypass in 1999. LCX: 80% Proximal Lesion; and occluded Mid LCX. The left circumflex coronary artery visualized antegrade is diffusely diseased. There are two small OM vessels (less than 2 mm) which have severe ostial lesions but TIFFANY-3 flow. There is a proximal 80% focal LCX lesion. The LCX is occluded in its mid portion. RCA: Dominant. Occluded at the ostium. There are faint collaterals to the left side that do not substantially fill any visible vessels. Note very heavy calcification throughout. RADIAL GRAFT TO OM: Intact. The radial graft to OM is intact; and the runoff OM vessel is of moderate size. REYNALDO TO RCA: The large REYNALDO artery is intact to its insertion on the proximal portion of the large PDA; and the runoff PDA is intact. There is retrograde flow into a right posterolateral branch which has an intermediate focal 60%-70% proximal lesion with TIFFANY-3 flow. ASHLEY to LAD: Intact. The ASHLEY graft is patent to a moderate-sized mid and distal LAD runoff vessel which is without lesions. Injections of the ASHLEY show retrograde collateral filling of a moderate-sized OM branch which is a branch not otherwise visualized on this study(it does not appear to be the branch revascularized by rthe radial graft). CONCLUSIONS: 1. Coronary Artery Disease (CAD)--Left main, and Three-Vessel CAD including moderate disease of left main; chronic ostial occlusion of LAD; severe proximal LCX disease with mid LCX occlusion; and ostial RCA occlusion. 2. CAB: Free radial graft intact to OM; and REYNALDO pedicle graft intact to proximal PDA; and ASHLEY pedicle graft intact to LAD. 3. Note systolic BP(by cuff) is equal in both arms, 146 mmHg. RECOMMENDATION: COMMENT: He has advanced, and end-stage disease of the [place] coronaries; but his all-arterial revascularization is satisfactory. The finding of a moderate-sized collateralized OM is consistent with the clinical findings pointing to the lateral wall on Echo and MPS. Although this is not a very large vessel, it may be a contributing culprit for his recent change in symptoms, and presentation with heart failure in combination with his moderate aortic stenosis, and chronic coronary disease. Management considerations include aggressive medical therapy for his heart failure. We discussed that if he does not do well clinically, consideration could be given to BUSINESS ASSISTANT approach to revascularizing the OM although this may be a high risk intervention in view of his renal disease; and improvement in his left ventricular function may be difficult to predict. Consider also ischemic papillary muscle dysfunction. MTDD
--- NOTE | 2017-01-13 14:58 | NUR ---
1430 transfer note: Patient has diuresed post Lasix 40 mg IV at 1200 hr, noted on I/O intervention. He states that his breathing is easier and expiratory wheezes have diminished. IV continues at 50 ml/hr per order. Report called to RAVEN Jacques on PCC. Patient transferred via bed.
--- NOTE | 2017-01-13 15:15 | NUR ---
Admit to PCC Pt admitted to PCC from [facility] who was previously on OSC at around 1500. Pt A&Ox3, Vitals stable, slight hypertensive, right groin site oozing a bit but soft and non tender. On bedrest till 1600. NS running at 50 mls/hour till 1800. Tele placed and SR 70's. All belongings brought up from previous room.
--- NOTE | 2017-01-13 16:47 | PROG NOTE ---
[address] [address] PROGRESS NOTE PATIENT: ELISHA MACK : 1945 MR#: [id number] ADMIT: 01/09/2017 JOB ID: [id number] DATE: 01/13/2017 The patient underwent diagnostic coronary angiography this morning by Dr. Henry. This demonstrated patent bypass grafts with an internal mammary graft to the LAD, right internal mammary graft to the PDA and a patent left radial bypass graft to the distal branch of his left circumflex. It is apparent that this patient's acute coronary syndrome and posterolateral ischemia and wall motion abnormality relate to proximal and distal left circumflex occlusion to the origin of a prominent obtuse marginal branch coming off the mid circumflex. There is collateral flow from the distal apical LAD to this obtuse marginal branch, but it is isolated from the proximal circumflex and from the distal bypassed circumflex territory. Cardiac catheterization did not include crossing the aortic valve. A total of 110 cc of contrast was used. This patient's access from the right common femoral artery was at a site with prominent atherosclerosis and therefore manual pressure was recorded. The patient does not have any evidence of a postprocedure hematoma. He is currently resting comfortably. I have had an opportunity to review these findings in detail with the patient, his and his son. I have recommended aggressive medical therapy at this point in time with a hope of achieving very good blood pressure control. With that and with adequate diuretic therapy, I would imagine that his ventricular function will improve with time. I have taken the liberty of making some changes with his current medication increasing his carvedilol to 25 mg twice a day, increasing his hydralazine to 50 mg three times daily, and adding isosorbide mononitrate 60 mg daily. Will want to observe him to make sure that his cardiac medications are adequately adjusted for blood pressure control and for diuresis while we observe his renal function following his diagnostic coronary angiography. I do not think he will likely be ready for discharge tomorrow but probably could go home the day after tomorrow if he is doing well and if his medications are adequately adjusted. He will then need to be followed in the office closely by Dr. Rajput, his primary manager outpatient. If he continues to be significantly symptomatic with exertional dyspnea or nocturnal pulmonary congestion, and if his overall ventricular function does not improve, then consideration may need to be given to TAVR procedure for his aortic stenosis. By reducing overall left ventricular afterload by controlling his blood pressure and replacing his valve, overall ventricular function could well improve at that point as well.
[2017-01-13] MEDS: Isosorbide Mononitrate 60 mg ER24 Tablet PO SCH (17:27)
[2017-01-13] MEDS: HYDROcodone-APAP 5-325 mg Tablet PO PRN (19:45)
[2017-01-13] MEDS: Insulin GLARgine 100 Unit/mL Syringe SUBQ SCH (21:54)
[2017-01-14 00:06] VITALS: BP 142/66; PULSE 61; RESP 18; O2SAT 98
[2017-01-14 03:36] VITALS: BP 156/77; PULSE 63; RESP 18; O2SAT 93
--- NOTE | 2017-01-14 05:30 | NUR ---
Pt alert and oriented x3. He c/o chronic back pain with relief reported after dose of Vicodin. Right groin site with small blood on the dressing. No further oozing noted. No hematoma. Pulses are easily palpable. Voiding per urinal. Ambulate in room with no problem. Addendum: 01/14/17 at 0615 by ALYSON GUARDADO RN Pt denies any sob. 02sat in mid on 3L
--- NOTE | 2017-01-14 08:13 | PCM.PNPOD ---
Subjective Date of Service: Jan 13, 2017 Date of Service: Jan 13, 2017 Visit Information: Reason for Visit Acute Heart Failure, N Stemi Surgery/Surgery Date Post-Op Day # Date of Admission: Jan 09, 2017 at 16:04 Hospital Day # Subjective: 71-year-old male with chronic osteomyelitis of the left second metatarsal admitted with congestive heart failure 4 days ago. Patient denies any new issues or complaints today. He was taken to the Database Security Expert today. Patient states that he is feeling very comfortable at this time. He states that he was told by the patient registration specialist that it will likely be at least 2 weeks until he is healthy enough to undergo surgical intervention for resection of the left second metatarsal. Postop General: No Complaints Gastrointestinal: Good Appetite Pain Management: No or Minimal Pain Objective Vital Sign - Last Date Time Temp Pulse Resp B/P Pulse Ox O2 Delivery O2 Flow Rate FiO2 01/14/17 03:36 36.5 63 18 156/77 93 Nasal Cannula 3.00 Intake and Output 01/13/17 01/13/17 01/14/17 Cumulative From/Thru 15:00 23:00 07:00 01/09/17 13:30 - 01/14/17 05:57 Intake Total 550 ml 333 ml 300 ml 5782 ml Output Total 740 ml 850 ml 540 ml 95259 ml Balance -190 ml -517 ml -240 ml -16943 ml Intake Oral 250 ml 120 ml 300 ml 3885 ml IV Total 300 ml 213 ml 1897 ml Output Urine Total 740 ml 850 ml 540 ml 71374 ml # Voids 3 # Bowel Movements 0 1 Result Diagram: 01/14/17 0311 01/14/17 0311 Lab Test 01/09/17 13:45 01/10/17 03:05 01/10/17 17:15 01/12/17 11:25 Hemoglobin A1c 7.7% (4.8-5.6) Magnesium Level 2.2mg/dL (1.6-2.6) Total Bilirubin 0.3mg/dL (0.0-1.2) Aspartate Amino Transf (AST/SGOT) 13U/L (0-50) Alanine Aminotransferase (ALT/SGPT) 10U/L (0-44) Alkaline Phosphatase 62U/L (25-160) Total Protein 7.2g/dL (6.4-8.4) Albumin 2.8g/dL (3.4-5.0) Urine Color Yellow (YELLOW) Urine Appearance Clear (CLEAR,HAZY) Urine pH 5.5 (5.0-8.0) Urine Specific [place] 1.020 (1.003-1.035) Urine Protein 300mg/dL (NEG,TRACE) Urine Glucose (UA) Negativemg/dL (NEGATIVE) Urine Ketones Negativemg/dL (NEGATIVE) Urine Occult Blood Small (NEGATIVE) Urine Nitrite Negative (NEGATIVE) Urine Bilirubin Negative (NEGATIVE) Urine Urobilinogen Normalmg/dL (NORMAL) Urine Leukocyte Esterase Negative (NEGATIVE) Urine RBC 3-10/hpf (0-2) Urine WBC 0-5/hpf (0-5) Urine Epithelial Cells Few/hpf (NONE-MOD) Urine Crystals Amorphous urates (NONE Urine Bacteria Few/hpf (NONE-FEW) Urine Hyaline Casts None/lpf (NONE) Urine Granular Casts None seen (NONE SEEN) Urine Waxy Casts None seen (NONE SEEN) Urine Red Blood Cell Casts None seen (NONE SEEN) Urine White Blood Cell Casts None seen (NONE SEEN) Urine Mucus Present (None Seen) Urine Trichomonas None seen (NONE SEEN) Urine Yeast None (NONE SEEN) Urinalysis Comment None Urine Culture Reflexed Not indicated Hold Urine Received (Received) Activated Partial Thromboplast Time 32.0sec (22.8-33.0) Test 01/13/17 04:45 01/14/17 00:25 01/14/17 03:11 White Blood Count 8.3th/mm3 (3.8-10.1) Red Blood Count 2.99mil/mm3 (4.40-5.80) Mean Corpuscular Volume 90.3fL (81-100) Mean Corpuscular Hemoglobin 27.8pg (27.0-35.0) Mean Corpuscular Hemoglobin Concent 30.7% (32.0-37.0) Red Cell Distribution Width 16.4% (12.3-15.4) Platelet Count 212bil/L (150-400) Neutrophils (%) (Auto) 62.6% (40-74) Lymphocytes (%) (Auto) 22.0% (14-46) Monocytes (%) (Auto) 10.4% (4-12) Eosinophils (%) (Auto) 4.1% (0-5) Basophils (%) (Auto) 0.5% (0-3) Prothrombin Time 11.7sec (8.1-12.5) Prothromb Time International Ratio 1.09ratio Total Creatine Kinase 35U/L (21-232) Troponin T 0.061ug/L (0.0-0.011) Hemoglobin 8.0g/dL (13.8-17.2) Hematocrit 26.3% (41.0-50.0) Sodium Level 136mEq/L (134-144) Potassium Level 4.4mEq/L (3.5-5.2) Chloride Level 103mEq/L (97-108) Carbon Dioxide Level 21mmol/L (18-29) Blood Urea Nitrogen 31mg/dL (8-27) Creatinine 1.76mg/dL (0.76-1.27) Estimat Glomerular Filtration Rate 41mL/min (>59) Glucose Level 145mg/dL (60-99) Calcium Level 8.4mg/dL (8.5-10.1) Pro-B-Type Natriuretic Peptide 98236fk/mL (0-376) Exam General: Alert, Oriented X3, No Acute Distress Lower Extremities: Left: Extremity warm Lower Extremity Pulses: Doppler: Left Dorsalis Pedis Left Posterior Tibal Postop Sensory Motor: Distal Motor Intact, Motor 5/5, Decreased Sensation Podiatry WOUND : Wound Location/Description Left plantar second metatarsal head ulceration full-thickness to subcutaneous tissue without exposed bone or tendon. This wound does probe to bone. There is a moderate amount of serous and serosanguineous drainage there is no purulent drainage noted no surrounding erythema area of the wound edges are mildly macerated. There is no malodor. This wound measures 1.2 cm x 0.4 cm x 1.5 cm in depth Assessment & Plan Impression Chronic osteomyelitis of the left second metatarsal with a diabetic foot ulceration of the left plantar foot Problems: Plan Dressing change today the wound was flushed with large amounts of normal saline. Iodoform packing gauze was placed into the plantar foot ulceration and dressed with dry sterile gauze and Kerlix. This dressing will be changed every 48-72 hours. I have discussed with the patient that I am comfortable transitioning his care to the outpatient setting and revisiting his potential second metatarsal resection once he is cleared from a cardiac standpoint. At this time he is stable for discharge from podiatry standpoint if he is discharge within the next 24 hours I would prefer for him to follow up either with myself or the wound care center this January 15. Podiatry will continue to follow every 48 hours VTE Prophylaxis: Other (On heparin drip for NSTEMI ) Chau Garcia DPM Jan 14, 2017 08:13
[2017-01-14 08:15] VITALS: BP 153/74; PULSE 74; RESP 18; O2SAT 97
[2017-01-14] MEDS: Insulin LISPRO 300 Unit/3 mL Inj SUBQ SCH ×2 (08:39→12:32)
[2017-01-14] MEDS: Isosorbide Mononitrate 60 mg ER24 Tablet PO SCH (08:52)
[2017-01-14] MEDS: Furosemide 10 mg/mL 4 mL Inj IVPUSH SCH (08:55)
--- NOTE | 2017-01-14 09:14 | PROG NOTE ---
[address] [address] PROGRESS NOTE PATIENT: ELISHA MACK : 1945 MR#: [id number] ADMIT: 01/09/2017 JOB ID: [id number] DATE: 01/14/2017 REASON FOR FOLLOWUP: Chronic osteomyelitis in a diabetic foot. INTERVAL HISTORY: The patient reports he is feeling fine. He denies any fevers, chills, or sweats. No new cardiac or pulmonary symptoms. No nausea, vomiting. No change in his situation with respect to his foot. PHYSICAL EXAMINATION: Reveals an afebrile gentleman, in no acute distress. Temperature 36.6, pulse 63, respiratory rate 18, blood pressure 156/77. He is in no distress. His lungs are clear posteriorly. Cardiac tones regular rate and rhythm with a systolic murmur which has not changed. Left foot is wrapped and I was advised not to unwrap it. LABORATORIES: Include white count 8300 yesterday, not repeated today. Creatinine 1.76, which is relatively stable. BNP at 12,000, which is elevated obviously. No new micro data is available. IMPRESSION: This patient was admitted for an elective resection of an area of chronic osteomyelitis in his left foot. He had been on chronic clindamycin, and I advised it to be stopped a couple of days before surgery. His surgery was canceled because of cardiac issues, which I have discussed this morning with Dr. Oseguera of Cardiology. At this point, Cardiology is recommending that the patient be observed from a cardiac standpoint for least a couple of weeks before he is cleared for surgery. RECOMMENDATIONS: 1. I would continue the oral clindamycin at the current dose of 300 q.i.d. as treatment for his chronic osteo until about 48 hours before definitive surgery, at which time I would stop it. 2. Once the definitive resection of the metatarsal is contemplated, please call me again when the patient is readmitted. At the time of the removal of the chronic osteo in the area of the metatarsal, culture should be sent for AFB fungus and bacteria as well as histo path. 3. ID will sign off as there is no active ID issues and the patient is going to have his surgery delayed for a couple of weeks.
[2017-01-14] MEDS: LEVOBUNOLOL 0.5% BOTH_EYES SCH (09:23)
[2017-01-14] MEDS: Sodium Chloride LOK Flush 10 mL Syringe IVFLUSH SCH (09:24)
--- NOTE | 2017-01-14 10:09 | DRSVH ---
PROCEDURE: X-RAY CHEST ONE VIEW, PORTABLE ([id number]) INDICATIONS: SHORT OF BREATH TECHNIQUE: One view of the chest was acquired. COMPARISON: [facility], CR, XR CHEST 2VW, 01/10/2017, 9:11. [facility], CR, XR CHEST 1VW (PORTABLE), 01/09/2017, 13:27. FINDINGS: Surgical changes and devices: Medium sternotomy wires and multiple surgical clips projected over the heart. Lungs and pleura: Small pleural effusions redemonstrated and pulmonary edema has diminished. No pneu mothorax. Mediastinum: Mediastinal contours appear normal. Heart size is enlarged. Bones and chest wall: No suspicious bony lesions. Overlying soft tissues appear unremarkable. IMPRESSION: 1. Small pleural effusions and resolving pulmonary edema. Dictated by: Ayan Evans A Interpreted: Jenna Carroll MD on 01/14/2017 at 9:46 Approved by: Jenna Carroll MD, PhD on 01/14/2017 at 10:07
[2017-01-14 10:42] VITALS: PULSE 70
--- NOTE | 2017-01-14 11:29 | PCM.DIMED ---
Discharge Instructions Date of Service Jan 14, 2017 Dates of Hospitalization Jan 09, 2017 at 16:04 Discharge Diagnosis Discharge Diagnosis 1. Acute Systolic Heart Failure, improved 2. NSTEMI, improved 4. IDDM Type II, stable 5. CKD stage III. Stable 6. Right foot Osteomyelitis and Diabetic Foot Ulcer,stable Diet Discharge Diet: Low fat, Low Sodium, Heart Healthy, Renal Diet Activity Discharge Activity: Limited until seen by PCP Patient Instructions Follow-up Provider: Mary Rivera MD Follow-up with PCP in: 1 week Provider: Danilo Casas MD Follow-up in: 1 week Moustapha Thomason MD Jan 14, 2017 11:29
[2017-01-14] MEDS ORDERED: ISOS60TA2 PO (11:33)
[2017-01-14] MEDS ORDERED: CARV25TA2 PO (11:33)
[2017-01-14] MEDS ORDERED: CLIN-77 PO (11:33)
[2017-01-14] MEDS ORDERED: LOSA100T3 PO (11:33)
[2017-01-14] MEDS ORDERED: HYDR-3939 PO (11:33)
--- NOTE | 2017-01-14 11:58 | PROG NOTE ---
[address] [address] PROGRESS NOTE PATIENT: ELISHA MACK : 1945 MR#: [id number] ADMIT: 01/09/2017 JOB ID: [id number] DATE: 01/14/2017 SUBJECTIVE: The patient states that he feels quite well today. He has had no problems with the access site in his right groin. His creatinine is stable at 1.76 this morning. He has had no recurrent problems with exertional dyspnea or any kind of anginal chest discomfort and states that he feels quite well. OBJECTIVE: His examination today is unremarkable. The right groin site looks good and no significant changes from my previous exams. Laboratory data continues to show significant anemia with a hemoglobin of 8.0 down from 10.0 on admission. I am uncertain if he has been checked for stool guaiacs. IMPRESSION: This gentleman presented five days ago with acute pulmonary congestion likely related to isolation of his primary obtuse marginal branch of the left circumflex from his bypass graft and from his [place] circulation. He does have collateral circulation to a fairly large obtuse marginal vessel but he has sustained some degree of injury and has a moderate amount of reversible ischemia in the distribution. There are no easy options for revascularization, and I anticipate that with medical therapy he should do well. His blood pressure needs to be adequately controlled, and it appears to be improved over the last 24 hours on his current medications. He remains on low-dose losartan which is fine as long as his kidney function is stable. He is on hydralazine 50 mg three times a day but I would recommend that that be changed to 75 mg twice a day when he goes home for better compliance. He is on carvedilol 25 mg a day in addition to isosorbide mononitrate and amlodipine, as well as furosemide 40 mg a day. He should follow up with Dr. Forrest, his primary care provider, next week to make sure that his blood pressure and renal function are stable, and to follow up on his fairly significant anemia. We will also make arrangements for him to be seen by Dr. Casas, his primary care helicopter dispatcher, for cardiac followup. I anticipate within 2-3 weeks it would be reasonable for him to be rescheduled for his elective metatarsal resection surgery. This gentleman is doing well and I anticipate that if he is ambulatory without any evidence of hypoxia or significant clinical symptoms, that he could be discharged home this afternoon. I have spoken with Dr. Thomason regarding these recommendations as well.
--- NOTE | 2017-01-14 12:48 | NUR ---
Social Work Note: Discharge Data& Assessment: Per pt is medically ready to discharge. NITZA met with pt and pt Danette at bedside to confirm discharge plan and assess for any unmet needs. Kehinde Lebron is a 71 year old male admitted on 01/09/2017 for acute heart failure and N STEMI. Per pt is medically improved and ready for discharge. Pt ambulating out of bed and now on room air. Pt to transport pt home today. Pt and pt deny any other needs. No other discharge needs identified. Plan: Per pt is medically ready to discharge home via POV. Pt and pt deny any other needs. No other discharge needs identified. SJEAL Moreno
--- NOTE | 2017-01-14 14:14 | PCM.DC.MED ---
Discharge Summary Date of Service Jan 14, 2017 Dates of Hospitalization Date of Hospital Admission Jan 09, 2017 at 16:04 Date of Discharge: Jan 14, 2017 Providers: Admitting Physician: James Hardy MD Primary Care Physician: Mychal Forrest MD Attending Physician: James Hardy MD Diagnosis at Time of Discharge Diagnosis at Time of Discharge 1. Acute Systolic Heart Failure, improved 2. NSTEMI, improved 4. IDDM Type II, stable 5. CKD stage III. Stable 6. Right foot Osteomyelitis and Diabetic Foot Ulcer,stable Consultations Infectious disease, Dr. Hackett Cardiology, Dr. Oseguera Interventional cardiology, Dr. Henry Podiatry Dr Garcia Procedures XRay, CTs & MRIs Chest X-ray reviewed : Moderate interstitial pulmonary edema, along with small right subpulmonic pleural effusion, suspicious for congestive heart failure Today chest X-ray personality reviewed : Improvement in Pulmonary edema ECG [address] depression in lateral leads Cardiac Echo Impression Interpretation Summary 1. Normal left ventricular size with mildly increased wall thickness and reduced systolic function with an estimated EF of 35 to 40% 2. Normal right ventricular size and systolic function. 3. Findings most consistent with moderate aortic stenosis. Compared to the previous echo study, the estimated EF has decreased. The wall motion abnormalities may be new Invasive Procedures Coronary angiogram: FINDINGS: LMCA: Note extensive heavy coronary calcification. The left main coronary artery appears short, diffusely diseased, and small with about 50% distal narrowing. LAD: Occluded at Ostium. The LAD appears to be flush occluded at its ostium with LMCA; is not seen on antegrade injections. This is consistent with the description of the angiogram in the operative note from his coronary bypass in 1999. LCX: 80% Proximal Lesion; and occluded Mid LCX. The left circumflex coronary artery visualized antegrade is diffusely diseased. There are two small OM vessels (less than 2 mm) which have severe ostial lesions but TIFFANY-3 flow. There is a proximal 80% focal LCX lesion. The LCX is occluded in its mid portion. RCA: Dominant. Occluded at the ostium. There are faint collaterals to the left side that do not substantially fill any visible vessels. Note very heavy calcification throughout. RADIAL GRAFT TO OM: Intact. The radial graft to OM is intact; and the runoff OM vessel is of moderate size. REYNALDO TO RCA: The large REYNALDO artery is intact to its insertion on the proximal portion of the large PDA; and the runoff PDA is intact. There is retrograde flow into a right posterolateral branch which has an intermediate focal 60%-70% proximal lesion with TIFFANY-3 flow. ASHLEY to LAD: Intact. The ASHLEY graft is patent to a moderate-sized mid and distal LAD runoff vessel which is without lesions. Injections of the ASHLEY show retrograde collateral filling of a moderate-sized OM branch which is a branch not otherwise visualized on this study(it does not appear to be the branch revascularized by rthe radial graft). CONCLUSIONS: 1. Coronary Artery Disease (CAD)--Left main, and Three-Vessel CAD including moderate disease of left main; chronic ostial occlusion of LAD; severe proximal LCX disease with mid LCX occlusion; and ostial RCA occlusion. 2. CAB: Free radial graft intact to OM; and REYNALDO pedicle graft intact to proximal PDA; and ASHLEY pedicle graft intact to LAD. 3. Note systolic BP(by cuff) is equal in both arms, 146 mmHg. RECOMMENDATION: COMMENT: He has advanced, and end-stage disease of the [place] coronaries; but his all-arterial revascularization is satisfactory. The finding of a moderate-sized collateralized OM is consistent with the clinical findings pointing to the lateral wall on Echo and MPS. Although this is not a very large vessel, it may be a contributing culprit for his recent change in symptoms, and presentation with heart failure in combination with his moderate aortic stenosis, and chronic coronary disease. Management considerations include aggressive medical therapy for his heart failure. We discussed that if he does not do well clinically, consideration could be given to SALES AND MARKETING COORDINATOR approach to revascularizing the OM although this may be a high risk intervention in view of his renal disease; and improvement in his left ventricular function may be difficult to predict. Consider also ischemic papillary muscle dysfunction. Elmo Henry MD 01/13/17 1236 <Electronically signed by Elmo Henry MD> 01/13/17 1634 Hospital Course 1. Acute Systolic Heart Failure, poa, active - continue with lasix 40 IV daily -daily standing weights -repeat BMP, BNP, CXR in AM -on an ARB The patient improved with diuresis. 2. NSTEMI, poa, active -Patient has known h/o of CAD s/p CABG . -On Aspirin, Plavix, BB, ARB, statin -focused cardiac cath today He was treated medically and did well. Coronary angiogram revealed patent right internal mammary artery graft to PDA and patent left internal mammary graft to LAD. He did have a distal left circumflex occlusion at the branch to the obtuse marginal distal to the graft. No revascularization occurred. He was treated medically with up titration of his cardioprotective medications. 4. IDDM Type II, poa, active -resume nutritional, correctional, basal insulin -patient to dose own correctional and nutritional insulin This was stable throughout hospitalization 5. CKD stage III. Likely diabetic nephropathy or and hypertensive nephropathy -Baseline creatinine is 1.8 -2 -BMP in am This was stable throughout hospitalization 6. Right foot Osteomyelitis and Diabetic Foot Ulcer, poa, active -foot procedure on ho;ld-oral clindamycin restarted but stop 48 hours prior to procedure -need cultures for AFB, Fungal, Bacterial at time of procedure Dr. Hackett recommended ongoing clindamycin at current dosing until the 2 days prior to his elective surgery which will be in about 2-3 weeks. Exam Vital Signs (Last) Date Time Temp Pulse Resp B/P Pulse Ox O2 Delivery O2 Flow Rate FiO2 01/14/17 10:42 70 01/14/17 08:15 36.3 18 153/74 97 Room Air 01/14/17 03:36 3.00 Exam Patient was seen and examined on the day of discharge Test 01/09/17 13:45 01/10/17 03:05 01/10/17 17:15 01/12/17 11:25 Hemoglobin A1c 7.7% (4.8-5.6) Magnesium Level 2.2mg/dL (1.6-2.6) Total Bilirubin 0.3mg/dL (0.0-1.2) Aspartate Amino Transf (AST/SGOT) 13U/L (0-50) Alanine Aminotransferase (ALT/SGPT) 10U/L (0-44) Alkaline Phosphatase 62U/L (25-160) Total Protein 7.2g/dL (6.4-8.4) Albumin 2.8g/dL (3.4-5.0) Urine Color Yellow (YELLOW) Urine Appearance Clear (CLEAR,HAZY) Urine pH 5.5 (5.0-8.0) Urine Specific [place] 1.020 (1.003-1.035) Urine Protein 300mg/dL (NEG,TRACE) Urine Glucose (UA) Negativemg/dL (NEGATIVE) Urine Ketones Negativemg/dL (NEGATIVE) Urine Occult Blood Small (NEGATIVE) Urine Nitrite Negative (NEGATIVE) Urine Bilirubin Negative (NEGATIVE) Urine Urobilinogen Normalmg/dL (NORMAL) Urine Leukocyte Esterase Negative (NEGATIVE) Urine RBC 3-10/hpf (0-2) Urine WBC 0-5/hpf (0-5) Urine Epithelial Cells Few/hpf (NONE-MOD) Urine Crystals Amorphous urates (NONE Urine Bacteria Few/hpf (NONE-FEW) Urine Hyaline Casts None/lpf (NONE) Urine Granular Casts None seen (NONE SEEN) Urine Waxy Casts None seen (NONE SEEN) Urine Red Blood Cell Casts None seen (NONE SEEN) Urine White Blood Cell Casts None seen (NONE SEEN) Urine Mucus Present (None Seen) Urine Trichomonas None seen (NONE SEEN) Urine Yeast None (NONE SEEN) Urinalysis Comment None Urine Culture Reflexed Not indicated Hold Urine Received (Received) Activated Partial Thromboplast Time 32.0sec (22.8-33.0) Test 01/13/17 04:45 01/14/17 00:25 01/14/17 03:11 White Blood Count 8.3th/mm3 (3.8-10.1) Red Blood Count 2.99mil/mm3 (4.40-5.80) Mean Corpuscular Volume 90.3fL (81-100) Mean Corpuscular Hemoglobin 27.8pg (27.0-35.0) Mean Corpuscular Hemoglobin Concent 30.7% (32.0-37.0) Red Cell Distribution Width 16.4% (12.3-15.4) Platelet Count 212bil/L (150-400) Neutrophils (%) (Auto) 62.6% (40-74) Lymphocytes (%) (Auto) 22.0% (14-46) Monocytes (%) (Auto) 10.4% (4-12) Eosinophils (%) (Auto) 4.1% (0-5) Basophils (%) (Auto) 0.5% (0-3) Prothrombin Time 11.7sec (8.1-12.5) Prothromb Time International Ratio 1.09ratio Total Creatine Kinase 35U/L (21-232) Troponin T 0.061ug/L (0.0-0.011) Hemoglobin 8.0g/dL (13.8-17.2) Hematocrit 26.3% (41.0-50.0) Sodium Level 136mEq/L (134-144) Potassium Level 4.4mEq/L (3.5-5.2) Chloride Level 103mEq/L (97-108) Carbon Dioxide Level 21mmol/L (18-29) Blood Urea Nitrogen 31mg/dL (8-27) Creatinine 1.76mg/dL (0.76-1.27) Estimat Glomerular Filtration Rate 41mL/min (>59) Glucose Level 145mg/dL (60-99) Calcium Level 8.4mg/dL (8.5-10.1) Pro-B-Type Natriuretic Peptide 64506bl/mL (0-376) Discharge Medications Discharge Medications Allopurinol (Allopurinol) 100 Mg Tablet 300 MG PO QAM (Reported) Amlodipine (Amlodipine) 10 Mg Tablet 10 MG PO QPM (Reported) Ascorbic Acid (Vitamin C) 1,000 Mg Tab.chew 1,000 MG PO QAM (Reported) Aspirin (Aspirin) 81 Mg Tablet 81 MG PO QAM (Reported) Atorvastatin (Lipitor) 40 Mg Tablet 40 MG PO QPM (Reported) Carvedilol (Carvedilol) 25 Mg Tablet 25 MG PO BID Prescribed by: MOUSTAPHA VARELA MD Clindamycin (Clindamycin) 150 Mg Capsule 300 MG PO QID Prescribed by: MOUSTAPHA VARELA MD Clopidogrel Bisulfate (Plavix) 75 Mg Tablet 75 MG PO QAM (Reported) Furosemide (Lasix) 40 Mg Tablet 60 MG PO QAM (Reported) Glipizide ER (Glipizide ER) 10 Mg Tab.er.24 10 MG PO BID (Reported) Glucagon,Human Recombinant (Glucagen) 1 Mg/1 Ml Vial 1 MG IJ PRN (Reported) Hydralazine (Hydralazine) 25 Mg Tablet 50 MG PO TID Prescribed by: MOUSTAPHA VARELA MD Insulin Glargine (Lantus U100 Solostar Insulin Pen) 100 Unit/1 Ml Insuln.pen 25 UNIT SUBQ QPM (Reported) Insulin Lispro (Humalog Kwikpen) 200 Unit/Ml (3 Ml) Insuln.pen 10 UNIT SQ TIDAC (Reported) 10U PLUS SLIDING SCALE DETERMINATION TIDAC Isosorbide MN ER (Isosorbide MN ER) 60 Mg Tab.er.24h 60 MG PO DAILY Prescribed by: MOUSTAPHA VARELA MD Latanoprost (Latanoprost) 2.5 Ml Drops 1 GTT BOTH_EYES HS (Reported) Levobunolol Ophth Soln (Levobunolol Ophth Soln) 5 Ml Drops 1 DROP BOTH_EYES QAM (Reported) Levothyroxine (Levothyroxine) 150 Mcg Tablet 150 MCG PO QAM (Reported) Losartan Potassium (Cozaar) 100 Mg Tablet 50 MG PO DAILY Prescribed by: MOUSTAPHA VARELA MD Multivitamin (Multi Vitamin Daily) 1 Each Tablet 1 EACH PO QAM (Reported) As needed Colchicine (Colchicine) 0.6 Mg Capsule 0.6 MG PO BID PRN PRN PRN (Reported) Cyclobenzaprine (Cyclobenzaprine) 10 Mg Tablet 10 MG PO TID PRN PRN For Spasm ( Reported) Hydrocodone-Acetaminophen 5-325 mg (Hydrocodone-Acetaminophen 5-325 mg) 1 Each Tablet 1 TABLET PO Q6H PRN PRN For Pain (Reported) Nitroglycerin SL (Nitrostat) 0.4 Mg Tab.subl 0.4 MG SL Q5MIN PRN PRN CHEST PAIN (Reported) Prednisone (PredniSONE) 10 Mg Tablet 10 MG PO DAILY PRN PRN PRN (Reported) Followup Plan Disposition: Home, with Discharge Diet: Low fat, Low Sodium, Heart Healthy, Renal Diet Discharge Activity: Limited until seen by PCP Follow-up Provider: Mary Rivera MD Follow-up with PCP in: 1 week Provider: Danilo Casas MD Follow-up in: 1 week Time spent 45 minutes Moustapha Varela MD Jan 14, 2017 14:14
--- NOTE | 2017-01-14 14:38 | NUR ---
POC/DISCHARGE Pt. a/ox3, vss, ambulating in room and hallway without difficulty. Indicates "feeling well today", reported no pain. Wound site soft, no hematoma appreciated, dressing c/d/i with visible trace old blood, . DISCHARGE - Medications and post angiogram instructions were reviewed - opportunity for questions was provided. D/C SL in handS (x2). Discharged via wheelchair, and home with ,
== END 2017-01-14 14:25 | disposition home or self-care (01) | DRG 280 ==
LOC: SED 13:18 → PCC 16:04 → OSC 01-12 01:23 → PCC 01-13 14:48
PROVIDERS: ADMIT Internal Medicine; ATTEND Internal Medicine
PROC: 4A023N7 Measurement of Cardiac Sampling and Pressure, Left Heart, Percutaneous Approach (ICD-10-PCS; principal; 2017-01-13)
PROC: B2121ZZ Fluoroscopy of Single Coronary Artery Bypass Graft using Low Osmolar Contrast (ICD-10-PCS; 2017-01-13)
DX: I13.0 Hypertensive heart and chronic kidney disease with heart failure and stage 1 through stage 4 chronic kidney disease, or unspecified chronic kidney disease (principal); I50.21 Acute systolic (congestive) heart failure; I21.4 Non-ST elevation (NSTEMI) myocardial infarction; M86.672 Other chronic osteomyelitis, left ankle and foot; N18.3 Chronic kidney disease, stage 3 (moderate); E11.621 Type 2 diabetes mellitus with foot ulcer; I25.10 Atherosclerotic heart disease of native coronary artery without angina pectoris; I25.84 Coronary atherosclerosis due to calcified coronary lesion; Z95.1 Presence of aortocoronary bypass graft; Z79.02 Long term (current) use of antithrombotics/antiplatelets; Z79.82 Long term (current) use of aspirin; Z79.4 Long term (current) use of insulin; Z87.891 Personal history of nicotine dependence; Z95.5 Presence of coronary angioplasty implant and graft; E11.40 Type 2 diabetes mellitus with diabetic neuropathy, unspecified

== ENCOUNTER 2017-02-06 11:20 | Day surgery (SDC) | payer MEDICARE ==
--- NOTE | 2017-02-04 11:46 | PCM.ANEPRE ---
Anesthesia Pre-Op Review Reason for Review: recent hosp admission CHF Additional Comments Mr. Dawkins is medically complex pt, most significantly with severe CAD , moderate aortic stenosis, 50% occlusion of his left main coranary artery, as well as diffuse disease elsewhere, with EF that hovers around the 35-40% range. He was cleared by cardiology after a recent cardiac cath which demonstrates plausible surgical intervention, but would be a high risk procedure (and in my opinion, higher risk than the planned metatarsal resection without further cardiac optimization). Anesthetic consideration to an ankle block for surgery vs PNB can be considered to avoid GA. As far as pre-op optimization, I have been asked to comment on continuation of lasix. I am in favor of continuing. However, if he appears hypovolemic, or has hypotension during the OR case, of course bolus of fluid is indicated to maintain MAPs>65 in the setting of his CKD. But given that he recently presented fluid overloaded, I would prefer to error on the side of euvolemia or hypovolemic to begin the case, than hypervolemic. I also note on review, that he has received no instruction for his plavex or ASA. I have asked our team to contact the surgical team for advice on the plavix. I have asked that he be instructed to CONTINUE his ASA unless the surgical team advises against it. In this case, we can collectively discuss the merrits on the day of surgery and make a decision at that time. While he is certainly a high risk patient, I believe he is optimized for this surgery. Mahin Acuna MD Feb 04, 2017 11:46
[~2017-02-06] VITALS: Ht 188 cm; Wt 91.2 kg
[~2017-02-06 11:20] MED LIST changes: +ASPI-973 PO; -ASPI325T32 PO; -CARV12.52 PO; +CARV25TA2 PO; +CLIN-77 PO; -CLIN-78 PO; +Clindamycin Inj 600 MG in IV Premix 1 EACH IV SCH; -HYDR-3938 PO; +HYDR-3940 PO; +ISOS30TA4 PO; -LEVO137T2 PO; +LEVO150T5 PO; -LOSA100T29 PO; +LOSA100T3 PO; +Lactated Ringer's 1,000 ML IV SCH; -MULTIVITAMIN PO
[2017-02-06] MEDS ORDERED: Propofol 10,000 mCg/mL 20 mL Inj ONE (11:21)
[2017-02-06 11:39] VITALS: PULSE 53; RESP 16; O2SAT 98
[2017-02-06] MEDS ORDERED: 0.9% Sodium Chloride 1,000 ML IV ONE (11:39)
[2017-02-06] MEDS ORDERED: Bupivacaine-MPF 0.5% W/EPI 30 mL Inj INFILTRATE ONE (12:25)
[2017-02-06] MEDS ORDERED: 0.9% Sodium Chloride 250 ML IV PRN (12:36)
--- NOTE | 2017-02-06 12:36 | PCM.HPANE ---
Patient Data Date of Service: Feb 06, 2017 ([id number]) Surgeon Admitting Provider: Attending Provider:Chau Garcia DPM Primary Care Physician:Mychal Forrest MD Other Provider:Grace Will Anesthesia Reason for Visit Left 2ND Toe Osteomyelitis Ht/WT & BMI Height (Feet): 6 Height (Inches): 2 Weight (Kilograms): 91.2 Body Mass Index 25.00 Allergies Coded Allergies: Penicillins (Verified Allergy, Severe, rash, 01/09/17) sulfamethoxazole (Verified Allergy, Unknown, 01/09/17) trimethoprim (Verified Allergy, Unknown, 01/09/17) lisinopril (Verified Adverse Reaction, Severe, COUGH, 01/09/17) Past Anesthesia History Anesthesia History: Denies:: Abnormal Airway, Anesthesia Reactions, Difficult Intubation, Fam Anesthesia Reaction, Fam Malignant Hypertherm, Malignant Hyperthermia Diabetes History Hx Diabetes?: Yes Type of Diabetes: Type II Glycemic Control: Insulin & Oral Medication Current Bedside Blood Glucose: 24 MRSA MRSA: No Medications Blood Thinner: Aspirin, Plavix Hypertension Medication: Yes Home Meds Incl Beta Radha: Yes Date Beta Radha Taken: Feb 06, 2017 Time Beta Radha Taken: 729 Active Scripts Losartan Potassium (Cozaar)100 Mg Nhluve06 Mg PO DAILY #30 TABLET Prov:Moustapha Thomason MD 01/14/17 Carvedilol 25 Mg Ytzmft43 Mg PO BID #60 TABLET Prov:Moustapha Thomason MD 01/14/17 Clindamycin 150 Mg Xbngklr910 Mg PO QID #84 CAPSULE Prov:Moustapha Thomason MD 01/14/17 Reported Medications Isosorbide MN ER 30 Mg Tab.er.24h30 Mg PO DAILY 02/04/17 Hydralazine 50 Mg Ogdlmz60 Mg PO BID Ref 0 02/04/17 Glipizide ER 10 Mg Tab.er.2410 Mg PO DAILY 02/04/17 Aspirin 81 Mg Haugbz92 Mg PO QAM 01/09/17 Levothyroxine 150 Mcg Zfokkk879 Mcg PO QAM 01/09/17 Multivitamin (Multi Vitamin Daily)1 Each Tablet1 Each PO QAM 01/09/17 Glucagon,Human Recombinant (Glucagen)1 Mg/1 Ml Vial1 Mg IJ PRN 01/08/17 Hydrocodone-Acetaminophen 5-325 mg 1 Each Tablet1 Tablet PO Q6H PRN For Pain Ref 0 01/08/17 Prednisone (PredniSONE)10 Mg Bvacju59 Mg PO DAILY PRN PRN 11/12/16 Nitroglycerin SL (Nitrostat)0.4 Mg Tab.subl0.4 Mg SL Q5MIN PRN CHEST PAIN #1 BOTTLE 11/12/16 Insulin Lispro (Humalog Kwikpen)200 Unit/Ml (3 Ml) Insuln.pen10 Unit SQ TIDAC 10U PLUS SLIDING SCALE DETERMINATION TIDAC 11/12/16 Furosemide (Lasix)40 Mg Ewxnaa24 Mg PO QAM 11/12/16 Colchicine 0.6 Mg Capsule0.6 Mg PO BID PRN PRN 11/12/16 Clopidogrel Bisulfate (Plavix)75 Mg Ufxcgk08 Mg PO QAM 11/12/16 Atorvastatin (Lipitor)40 Mg Nhxifj71 Mg PO QPM 11/12/16 Ascorbic Acid (Vitamin C)1,000 Mg Tab.chew1,000 Mg PO QAM 06/12/15 Levobunolol Ophth Soln 5 Ml Drops1 Drop BOTH_EYES QAM 06/12/15 Latanoprost 2.5 Ml Drops1 Gtt BOTH_EYES HS 06/12/15 Insulin Glargine (Lantus U100 Solostar Insulin Pen)100 Unit/1 Ml Insuln.pen25 Unit SUBQ QPM 06/12/15 Amlodipine 10 Mg Vzfuuz23 Mg PO QPM 06/12/15 Allopurinol 100 Mg Vvkeua090 Mg PO QAM 06/12/15 Discontinued Reported Medications Cyclobenzaprine 10 Mg Pdydbq91 Mg PO TID PRN For Spasm 01/09/17 Glipizide ER 10 Mg Tab.er.2410 Mg PO BID 06/12/15 Discontinued Scripts Isosorbide MN ER 60 Mg Tab.er.24h60 Mg PO DAILY #30 Prov:Moustapha Thomason MD 01/14/17 Hydralazine 25 Mg Agnakr99 Mg PO TID #90 TABLET Prov:Moustapha Thomason MD 01/14/17 History History of ENT Problems?: Yes HEENT History: Positive for:: Cataracts (hx angelica extractions) Denture Type: None Teeth Condition: Within Normal Limits Hx of Heart Problems?: Yes Cardiovascular History: Positive for:: Cardiac Surgery (cabg x 3 vessels ) Congestive Heart Failure (current admitting dx) Edema Heart Murmur Hypertension Valvular Heart Disease (echo 01/2017) Denies:: AICD Abdominal Aortic Aneurism Atrial Fibrillation Chest Pain Coronary Artery Disease Irregular Heartbeat Pacemaker Peripheral Vascular Rheumatic Fever Thrombophlebitis Hx of Respiratory Problem?: Yes Respiratory History: Positive for:: Dyspnea Use of C-PAP Machine Denies:: Asthma COPD Chest Surgery Cough Emphysema Hemoptysis Oxygen Administration Pneumonia Pulmonary Embolism Tuberculosis Use of Inhalers / NEBS Hx Neurologic Problems?: No Neurological History: Denies:: Alzheimer's Disease CVA Dementia Dizziness Headaches Multiple Sclerosis Parkinson's Disease Peripheral Neuropathy Seizures TIA Hx of GI Problems?: Yes Gastrointestinal History: Denies:: Cirrhosis Diverticulitis Gall Bladder Disease Gastroesphageal Reflux Gastrointestinal Bleeding Heartburn Hepatitis Hiatal Hernia Liver Disease Rectal Bleeding Hx of Problems?: Yes Genitourinary History: Denies:: HX of Hemodialysis (CKD stage 3) Kidney Stones Urinary Tract Infection HX of Peritoneal Dialysis: No Male Hx: Denies:: Prostate Problems Scrotal Mass Testicular Surgery Skin History: Denies:: History Skin Disorders? Pressure Ulcers (CHRONIC NON-PRESSURE ULCER LT FOOT/OSTEOMYELITIS=CURRENT PROBLEM) Hx Musculoskeletal Problems?: Yes Musculoskeletal History: Positive for:: Back Injury Denies:: Degenerative Joint Fibromyalgia Joint Replacement Musculoskeletal Trauma Myasthenia Gravis Osteoarthritis Rheumatoid Arthritis Systemic Lupus Hx of Psycho/Social Problems?: No Psycho Social History: Denies:: Anxiety Bipolar Disorder Hx Depression Suicide Attempt Hx Surgeries?: Yes (CABG,B/L CATARACTS, STENT LSFA,LT FOOT RPR) Hx Any Other Health Problems?: Yes Other History: Positive for:: Hospitalization (january 2017 for CHF) Thyroid Disease Denies:: Cancer Endocrine Disease History Blood Transfusions: Denies:: Blood Transfuse Reaction Blood Transfusions Hx Diabetes: YesBedside Blood Glucose: 24 Hx Alcohol Use: NoHx Substance Use: No Smoking Status: Former Smoker Have You Smoked inLast 12 mo: No Stop/Bang P-Blood Pressure: treated: Yes B- Body Mass Index > 35 kg/m2: Yes A- Age over 50: Yes N- Neck Large Circumference: No G- Gender Male: Yes Risk Assessment Category Category 1A: Patient has history of documented sleep apnea, and HAS NOT received any narcotic, sedative or anesthesia administration during this stay. Category 1B: Patient has history of documented sleep apnea, and HAS received any narcotic , sedative or anesthesia administration during this stay Category 2: Patient has SUSPECTED Obstructive Sleep Apnea, and HAS received any narcotic , sedative or anesthesia administration during this stay. Category 3: Patient has SUSPECTED Obstructive Sleep Apnea and HAS NOT received narcotic, sedative or anesthesia administration during this stay. Category 4: Outpatient in Procedural Areas with known sleep apnea or who screen positive for High Risk via the STOP/BANG questionnaire. Exam Exam Vital Signs Vital Signs Date Time Temp Pulse Resp B/P Pulse Ox O2 Delivery O2 Flow Rate FiO2 02/06/17 11:39 36.4 53 16 98 Room Air General Appearance: Alert, Oriented X3, Cooperative, No Acute Distress HEENT/AIRWAY: MP 2, Neck Movement (FROM), Mouth Opening (3 FBMO) Lungs: Clear to Auscultation, Diminished Heart: Regular Rate/Rhythm, No Murmurs/Rubs/Gallops, Murmur Meds/Labs/Diagnostics Admission Meds Current Medications Clindamycin Phosphate/ Dextrose 600 mg/ Premix 50 ml @ 100 mls/hr PREOP IV Last administered on 02/06/17 12:03; Start 02/06/17 at 06:00; Stop 02/06/17 at 19:00 Sodium Chloride (Normal Saline) 1,000 ml @ ud STK-MED ONCE IV Last administered on 02/06/17 11:39; Start 02/06/17 at 11:39; Stop 02/06/17 at 11:40 ; Status DC Bupivacaine HCl/ Epinephrine Bitart (Sensorcaine-MPF 0.5% W/EPI Inj) 30 ml STK- MED ONCE INFILTRATE Last administered on 02/06/17 12:25; Start 02/06/17 at 12: 25; Stop 02/06/17 at 12:31; Status DC Bedside Blood Glucose: 24 Plan Impression Patient chart reviewed, patient interviewed and anesthestic plan with risks, benefits, and alternatives discussed, and informed consent obtained. NPO per Anesth. Guidelines: Yes ASA Physical Status: ASA3 Severe Disease (CHF) Anesthetic Plan: GA, MAC Bene/Risks/Altern/Consents: Yes HP Complete Prior to Induction: Yes Cecilio Hammer MD Feb 06, 2017 12:36
[2017-02-06] MEDS ORDERED: fentaNYL-PF 50 mCg/mL 2 mL Inj IVPUSH PRN (12:40)
[2017-02-06] MEDS ORDERED: Phenylephrine 10,000 mCg/mL Inj IVPUSH PRN (12:40)
[2017-02-06] MEDS ORDERED: EPHEDrine Sulfate 50 mg/mL Inj IVPUSH PRN (12:40)
[2017-02-06] MEDS ORDERED: Atropine 0.4 mg/mL Inj IVPUSH PRN (12:40)
[2017-02-06] MEDS ORDERED: Ondansetron 2 mg/mL 2 mL Inj IVPUSH PRN (12:40)
[2017-02-06] MEDS ORDERED: Labetalol 5 mg/mL 4 mL Inj IV PRN (12:40)
[2017-02-06 13:09] VITALS: BP 125/58; PULSE 51; RESP 14; O2SAT 99
[2017-02-06] MEDS ORDERED: oxyCODONE-Acetamin 5-325 mg Tablet PO PRN (13:10)
--- NOTE | 2017-02-06 13:17 | PCM.PODPO ---
Podiatry Operative Report Date of Service: Feb 06, 2017 (1606) Date of Service Feb 06, 2017 Pre Operative Diagnosis Osteomyelitis of the left second metatarsal Post Operative Diagnosis Same as preoperative diagnoses Procedure Partial left second ray resection Surgeon Surgeon: Chau Garcia DPM Assistants: None Indication for Procedure Osteomyelitis of the second metatarsal head Findings Necrotic left second metatarsal head. Normal appearing second metatarsal shaft with healthy hard bone stock Details of Procedure Patient was identified in the preoperative holding area. All preoperative comorbidities and allergies were identified and thoroughly discussed. The patient was transported into the operating room and placed on the operating room table in the normal supine position. The patient was then prepped and draped in the normal aseptic technique. Attention was first paid to the dorsal aspect of the left foot. A curvilinear incision was made overlying the second metatarsal shaft distally and the second digit base. Once that initially her skin all subcutaneous neurovascular structures were identified and retracted out of the surgical field. Blunt dissection was carried down with a Metzenbaum scissor to identify the extensor digitorum tendon which was retracted laterally. Sharp dissection was then carried down through subcutaneous tissue directly to the second metatarsal shaft and reflected both medially and then laterally to expose the distal second metatarsal shaft. Blunt dissection was continued until the metatarsal head was identified and excised utilizing a Esthela or. There is a moderate amount of local necrotic fatty tissue which was also debrided at this time. This area communicated to the plantar ulceration which today measures 1.7 cm x 0.3 cm x 0.7 cm in depth. No purulent drainage was noted and no malodor was noted. This wound was ankle was a flush with large amounts of normal saline. A sagittal saw was then utilized to resect approximately 2 cm of the distal metatarsal shaft. The second metatarsal head and clean margin second metatarsal shaft were then sent for pathologic evaluation. This wound was again closely flushed with large amounts of normal saline. Deep closure was performed utilizing number 3. 0 Vicryl and skin closure was performed utilizing number 3. 0 Prolene. The plantar left second metatarsal ulceration was then packed with 1/4 inch iodoform packing gauze. All wounds were then dressed with sterile 4 x 4 gauze Kerlix AB D pads and a mild Coban compression dressing extending to the knee. No complications occurred during this procedure. The patient was awoken by anesthesia and transported out of the operating room. Grafts, Implants: None Complications There were no periprocedural complications identified. Condition Stable Anesthetic Administered: MAC Catheters: None Output, Estimated Blood Loss: 20 Blood Admin during surgery: No Surgical Cast or Splint: None Surgical Specimen Removed: No Specimen sent to Pathology: No Post Operative Plan Ice and elevate left foot Partial weightbearing to left heel with limited activity Discharged to home when stable Keep dressing clean dry and intact Follow-up in 1 week at the wound care center Chau Garcia DPM Feb 06, 2017 13:17
[2017-02-06 13:25] VITALS: BP 143/61; PULSE 50; RESP 14; O2SAT 96
[2017-02-06 13:32] VITALS: BP 146/58; PULSE 49; RESP 14; O2SAT 100
--- NOTE | 2017-02-06 14:22 | PCM.ANEP1 ---
Post Anesthesia PACU Phase 1 Assessment Vital Signs Vital Signs Date Time Temp Pulse Resp B/P Pulse Ox O2 Delivery O2 Flow Rate FiO2 02/06/17 13:32 49 14 146/58 100 Room Air 02/06/17 13:25 50 14 143/61 96 Room Air 02/06/17 13:09 36.4 51 14 125/58 99 Room Air 02/06/17 11:39 36.4 53 16 98 Room Air Anesthetic Administered: MAC Level of Alertness: Awake, talking HERNANDEZ's with Equal Strength: Yes Pain: No Nausea or Vomiting: No CV Function & Hydration Stable: Yes Airway Device: N/A Oxygen Delivery: Room Air Lungs: Clear to Auscultation, Diminished Dermatome Level: Full Sensation PACU Phase 2 Assessment Complications: No Follow up Care: N/A Patient Instructions Provided: N/A Cecilio Hammer MD Feb 06, 2017 14:22
--- NOTE | 2017-02-11 16:35 | PATH ---
SURGICAL PATHOLOGY Attending Physician:Chau Garcia, CASE STATUS: Signed Out PATIENT NAME: ELISHA MACK PID: [id number] : 1945 DATE COLLECTED:02/06/2017 20:48 SPECIMEN: 1: Extremity Amputation, Non-Traumatic 2: Extremity Amputation, Non-Traumatic CLINICAL HISTORY: 1). LEFT 2ND METATARSAL HEAD 2). CLEAN MARGIN 2ND METATARSAL FINAL DIAGNOSIS: 1.LEFT SECOND METATARSAL HEAD AMPUTATION SPECIMEN: EXTENSIVE BONE NECROSIS EXTENDING TO THE INKED RESECTION MARGIN. 2.CLEAN MARGIN, SECOND METATARSAL BONE: VIABLE BONE AND SOFT TISSUE. ICD10 M87.378 GROSS DESCRIPTION: The specimens are received in formalin, labeled with the patient's name, and sublabeled as the following: (1) left metatarsal head; (2) clean margin 2nd metatarsal. (1) The specimen consists of an unoriented piece of bone with am articular surface (1.8 x 1.4 x 1.0 cm). The surface is harrison-white smooth and shiny. The exposed bone is hemorrhagic. The bone is easily sliced with a scalpel. Ink code: black-resection margin. Section code: (1A) bone, longitudinally sectioned, corporate sales representative. Note: The bone section has been decalcified. (2) The specimen consists of an unoriented resected piece of bone (3.0 x 1.4 x 1.3 cm). The bone is hard and cannot be sliced with a scalpel. The cut surface is cast-yellow and unremarkable. Ink code: black-resection margin. Section code: (2A) bone, serially sectioned, represented. Note: The bone section has been decalcified. 02/07/17 MICRO DESCRIPTION: See diagnosis. ICD-9 CODES: CPT CODES: 1: 87156, 84904 2: 82027, 39118 Electronically Signed Out Froilan Reynoso MD [facility] [address], [place] [address] Technical component performed at [facility], [address] [place] [address] Ave[address], [place], [address]
[2017-02-17] MEDS ORDERED: CYCL10TA9 PO (09:52)
[2017-02-17] MEDS ORDERED: FEG324 PO (09:52)
== END 2017-02-06 23:59 | disposition home or self-care (01) ==
LOC: SAS 11:20
PROVIDERS: ATTEND Podiatrist Foot & Ankle Surgery
DX: M87.378 Other secondary osteonecrosis, left toe(s) (principal); I13.0 Hypertensive heart and chronic kidney disease with heart failure and stage 1 through stage 4 chronic kidney disease, or unspecified chronic kidney disease; I50.9 Heart failure, unspecified; N18.4 Chronic kidney disease, stage 4 (severe); Z99.2 Dependence on renal dialysis; E11.40 Type 2 diabetes mellitus with diabetic neuropathy, unspecified; I25.10 Atherosclerotic heart disease of native coronary artery without angina pectoris; I73.9 Peripheral vascular disease, unspecified; G47.33 Obstructive sleep apnea (adult) (pediatric); E78.5 Hyperlipidemia, unspecified; M10.9 Gout, unspecified; I35.0 Nonrheumatic aortic (valve) stenosis; I83.92 Asymptomatic varicose veins of left lower extremity; Z87.891 Personal history of nicotine dependence; Z95.1 Presence of aortocoronary bypass graft; Z79.82 Long term (current) use of aspirin; Z79.84 Long term (current) use of oral hypoglycemic drugs; Z79.4 Long term (current) use of insulin; Z79.02 Long term (current) use of antithrombotics/antiplatelets; Z79.52 Long term (current) use of systemic steroids; Z95.5 Presence of coronary angioplasty implant and graft
CPT/HCPCS: 28122; J7030